=== PATIENT | female | born 1960 | race African-American/Black ===

== ENCOUNTER 2021-03-20 13:58 | Emergency (ER) | payer OTHER ==
--- NOTE | 2021-03-20 15:17 | ER ---
Nurse's Notes [facility] Name: Shana Jim Age: 60 yrs Sex: Female : 1960 Arrival Date: 03/20/2021 Time: 14:03 Bed 19 Private MD: Diagnosis: Insect bite (nonvenomous) of right forearm;Cutaneous abscess of limb Presentation: 03/20 14:05 Chief complaint: Patient states: "I had an insect bite a few weeks ago and now there is aa5 another bump on my right arm and it's really hurting me". Coronavirus screen: At this time, the client does not indicate any symptoms associated with coronavirus-19. Ebola Screen: No symptoms or risks identified at this time. Initial Sepsis Screen: Does the patient meet any 2 criteria? No. Patient's initial sepsis screen is negative. Does the patient have a suspected source of infection? No. Patient's initial sepsis screen is negative. Risk Assessment: Do you want to hurt yourself or someone else? Patient reports no desire to harm self or others. Onset of symptoms was 2020. 14:05 Method Of Arrival: Ambulatory aa5 14:05 Acuity: BAILEY 4 aa5 Historical: - Allergies: 14:07 No Known Allergies; aa5 - PMHx: 14:07 Diabetes mellitus; Hypertensive disorder; aa5 - PSHx: 14:07 tubal ligation; back sx; aa5 - Immunization history:: Client reports receiving the Robert \\T\\ Robert single-dose vaccine. - Social history:: Smoking status: Patient reports the use of cigarette tobacco products, denies chronic smoking, but will smoke occasionally. Screenin:16 Abuse screen: Denies threats or abuse. Nutritional screening: No deficits noted. sl2 Tuberculosis screening: No symptoms or risk factors identified. Fall Risk None identified. Assessment: 14:16 General: Appears in no apparent distress. well groomed, well developed, Behavior is sl2 calm, cooperative, appropriate for age. 14:16 Pain: Complains of pain in right arm Pain does not radiate. Pain currently is 4 out of sl2 10 on a pain scale. Quality of pain is described as aching, Pain began Is continuous. Neuro: No deficits noted. Cardiovascular: No deficits noted. Respiratory: No deficits noted. GI: No deficits noted. : No deficits noted. EENT: No deficits noted. Derm: No deficits noted. Musculoskeletal: No deficits noted. Vital Signs: 14:07 BP 115 / 63; Pulse 73; Resp 16 S; Temp 97.5(TE); Pulse Ox 100% on R/A; Weight 69.4 kg aa5 (R); Height 5 ft. 3 in. (160.02 cm) (R); 14:40 BP 118 / 74; Pulse 75; Resp 18; Temp 97.7; Pulse Ox 99% on R/A; sl2 14:07 Body Mass Index 27.10 (69.40 kg, 160.02 cm) aa5 ED Course: 14:03 Patient arrived in ED. am2 14:05 Arm band placed on. aa5 14:06 Triage completed. aa5 14:12 Lianet Russell MD is Attending Physician. sp3 14:16 Patient has correct armband on for positive identification. Bed in low position. sl2 14:16 Patient did not have IV access during this emergency room visit. sl2 15:30 Angela Emerson, RN is Primary Nurse. sl2 15:33 No provider procedures requiring assistance completed. sl2 Administered Medications: No medications were administered Outcome: 15:16 Discharge ordered by . sp3 15:33 Discharged to home ambulatory. sl2 15:33 Condition: stable 15:33 Discharge instructions given to patient, Instructed on discharge instructions, follow up and referral plans. no drinking with medication, medication usage, Demonstrated understanding of instructions, follow-up care, medications, Prescriptions given X 2. 15:36 Patient left the ED. sl2 Signatures: Ava Wyman, RN RN [facility] Jesi Alexander 2 Lianet Russell MD MD sp3 Angela Emerson, RN RN sl2
--- NOTE | 2021-03-20 15:17 | EDPHYS ---
Physician Documentation [facility] Name: Shana Jim Age: 60 yrs Sex: Female : 1960 Arrival Date: 03/20/2021 Time: 14:03 Bed 19 Private MD: ED Physician Lianet Russell HPI: 03/20 14:41 This 60 yrs old Black Female presents to ER via Ambulatory with complaints of Arm Pain, sp3 Hand Pain. 14:41 60-year-old female with a history of hypertension and diabetes presents with right sp3 anterior forearm insect bite. Patient states that her primary care doctor has been treating a similar bite just medial to when she has by approximately 2 cm. Patient states that she has been on 2 rounds of antibiotics which is improved but the lateral bite has worsened along with now pain radiating proximally into the elbow and shoulder. Patient denies fever, arm swelling, shortness of breath, chest pain, back pain, any other ROS at this time. Patient states that the shoulder pain can sometimes slightly migrate inward but has not been predominantly in the chest. Patient's blood pressure and blood sugar has been fairly controlled with oral medications. Patient denies any other symptoms, prior coagulation pathology, smoking status, family history of pulmonary embolism or DVT, or any other hypercoagulable syndrome.. Historical: - Allergies: 14:07 No Known Allergies; aa5 - PMHx: 14:07 Diabetes mellitus; Hypertensive disorder; aa5 - PSHx: 14:07 tubal ligation; back sx; aa5 - Immunization history:: Client reports receiving the Orbert \T\ Robert single-dose vaccine. - Social history:: Smoking status: Patient reports the use of cigarette tobacco products, denies chronic smoking, but will smoke occasionally. ROS: 14:45 Constitutional: Negative for fever, chills, and weight loss, Eyes: Negative for injury, sp3 pain, redness, and discharge, Neck: Negative for injury, pain, and swelling, Cardiovascular: Negative for chest pain, palpitations, and edema, Respiratory: Negative for shortness of breath, cough, wheezing, and pleuritic chest pain, Abdomen/GI: Negative for abdominal pain, nausea, vomiting, diarrhea, and constipation, Back: Negative for injury and pain, Skin: Negative for injury, rash, and discoloration, Neuro: Negative for headache, weakness, numbness, tingling, and seizure, Allergy/Immunology: Negative for hives, rash, and allergies, Endocrine: Negative for neck swelling, polydipsia, polyuria, polyphagia, and marked weight changes. 14:45 All other systems are negative. Exam: 14:45 Constitutional: This is a well developed, well nourished patient who is awake, alert, sp3 and in no acute distress. Head/Face: Normocephalic, atraumatic. Eyes: Pupils equal round and reactive to light, extra-ocular motions intact. Lids and lashes normal. Conjunctiva and sclera are non-icteric and not injected. Cornea within normal limits. Periorbital areas with no swelling, redness, or edema. Neck: Trachea midline, no thyromegaly or masses palpated, and no cervical lymphadenopathy. Supple, full range of motion without nuchal rigidity, or vertebral point tenderness. No Meningismus. Chest/axilla: Normal chest wall appearance and motion. Nontender with no deformity. No lesions are appreciated. Cardiovascular: Regular rate and rhythm with a normal S1 and S2. No gallops, murmurs, or rubs. Normal PMI, no JVD. No pulse deficits. Respiratory: Lungs have equal breath sounds bilaterally, clear to auscultation and percussion. No rales, rhonchi or wheezes noted. No increased work of breathing, no retractions or nasal flaring. Abdomen/GI: Soft, non-tender, with normal bowel sounds. No distension or tympany. No guarding or rebound. No evidence of tenderness throughout. Neuro: Awake and alert, GCS 15, oriented to person, place, time, and situation. Cranial nerves II-XII grossly intact. Motor strength 5/5 in all extremities. Sensory grossly intact. Cerebellar exam normal. Normal gait. Psych: Awake, alert, with orientation to person, place and time. Behavior, mood, and affect are within normal limits. 14:45 Skin: Patient has healing 1 cm wound consistent with insect bite on the medial aspect of the wrist. Just lateral to that she has another 1 cm still active mildly fluctuant insect bite consistent with possible early abscess with radiating pain proximally. No red streaking is noted. No surface erythema is noted. She has no axillary lymphadenopathy and no signs of peripheral edema or venous congestion.. 15:13 ECG was reviewed by the Attending Physician. EKG demonstrates normal sinus rhythm at 60 sp3 bpm with incomplete right bundle branch block leftward axis, nonspecific ST/T changes diffusely without evidence of any acute ischemia. No old EKG available for comparison. Vital Signs: 14:07 BP 115 / 63; Pulse 73; Resp 16 S; Temp 97.5(TE); Pulse Ox 100% on R/A; Weight 69.4 kg aa5 (R); Height 5 ft. 3 in. (160.02 cm) (R); 14:40 BP 118 / 74; Pulse 75; Resp 18; Temp 97.7; Pulse Ox 99% on R/A; sl2 14:07 Body Mass Index 27.10 (69.40 kg, 160.02 cm) aa5 MDM: 14:38 Patient medically screened. sp3 14:46 Data reviewed: vital signs, nurses notes. ED course: Will obtain quick EKG to assess sp3 for any cardiac abnormality, however we will be administering Bactrim and clindamycin p.o. for a longer course possible MRSA. Patient will be instructed to use warm compresses and follow-up with her PCP regarding further follow-up. At this time I do not clinically believe patient has ACS, PE, thoracic aneurysm, sepsis, shock, septic joint, cellulitis, flexor tenosynovitis, any other critical emergency at this time. There is no pain on passive flexion and patient has full range of motion on all joints.. 15:14 ED course: EKG reviewed and demonstrates no acute ischemia. Clinically patient does not sp3 have acute coronary syndrome given the way she is presented. Will discharge patient home at this time on p.o. Bactrim and p.o. clindamycin with close PCP follow-up.. 03/20 14:38 Order name: EKG - Nurse/Tech; Complete Time: 15:30 sp3 Administered Medications: No medications were administered Disposition Summary: 03/20/21 15:16 Discharge Ordered Location: Home sp3 Condition: Stable sp3 Diagnosis - Insect bite (nonvenomous) of right forearm sp3 - Cutaneous abscess of limb sp3 Followup: sp3 - With: Private Physician - When: - Reason: Continuance of care Discharge Instructions: - Discharge Summary Sheet sp3 - Insect Bite, Adult sp3 Forms: - Medication Reconciliation Form sp3 - Thank You Letter sp3 - Antibiotic Education sp3 - Prescription Opioid Use sp3 Prescriptions: - Clindamycin HCl 300 mg Oral Capsule - take 1 capsule by ORAL route every 6 hours for 10 days; 40 capsule; Refills: 0, sp3 Product Selection Permitted - Bactrim DS 800-160 mg Oral Tablet - take 1 tablet by ORAL route every 12 hours for 10 days; 20 tablet; Refills: 0, sp3 Product Selection Permitted Signatures: Ava Wyman RN RN aa5 Lianet Russell MD MD sp3
[2021-03-20 15:57] VITALS: BP 118/74; TEMP 97.7; O2SAT 99
--- NOTE | 2021-03-21 12:15 | EKG ---
Test Date: 2021-03-20 Test Time: 15:02:16 Client Advisor: Queta MEASUREMENT RESULTS: Intervals: Rate: 58 TX: 174 QRSD: 106 QT: 424 QTc: 416 [place]: P: 37 TX: 174 QRS: -44 T: -31 INTERPRETIVE STATEMENTS: Sinus bradycardia Left axis deviation Incomplete right bundle branch block Voltage criteria for left ventricular hypertrophy Nonspecific T wave abnormality Abnormal ECG Compared to ECG 10/30/2011 16:13:19 Incomplete right bundle-branch block now present T-wave abnormality now present Sinus rhythm no longer present Electronically Signed On 03-21-21 12:12:58 CDT by Calvin Holly
== END 2021-03-20 15:36 | disposition home or self-care (01) ==
LOC: ER 13:58
DX: S50.861A Insect bite (nonvenomous) of right forearm, initial encounter (principal); L02.413 Cutaneous abscess of right upper limb; F17.210 Nicotine dependence, cigarettes, uncomplicated; I10 Essential (primary) hypertension; E11.9 Type 2 diabetes mellitus without complications
CPT/HCPCS: 93005; 99282

== ENCOUNTER 2021-12-16 18:19 | Observation (INO) | payer OTHER ==
--- OUTSIDE RECORDS SUMMARY | 2021-12-16 18:32 | XMS REPORT | Continuity of Care Document ---
:1960 Author Organization [facility] Address [address] [place] [address] Dr. Feliciano [address] [place] [id number] Care Team Providers Name Role Phone SAMANTHA Attending Clinician Unavailable Karen Attending Clinician [phone] BRIE Attending Clinician Unavailable KAREN_Beck Admitting Clinician Unavailable BRIE Admitting Clinician Unavailable Payers Payer Name Policy Type Policy Number Effective Date Expiration Date [facility] [id number] 2021 [facility] 00:00:00 (MEDICAID HMO) INDIGENT PROGRAM [id number] Problems This patient has no known problems. Allergies, Adverse Reactions, Alerts This patient has no known allergies or adverse reactions. Medications This patient has no known medications. Procedures This patient has no known procedures. Encounters Start End Encounter Admission Attending Care Care Encounter Source Date/Time Date/Time Type Type Clinicians Facility Department ID 2021-12-07 2021-12-07 Outpatient [facility] [id number] [place] 12:08:00 12:08:00 [facility] 2021-12-07 2021-12-07 Outpatient Karen [facility] [id number] 00:00:00 00:00:00 Mindy [id number] 2021-11-03 2021-11-03 Outpatient [facility] [id number] [place] 04:09:00 04:09:00 [facility] 2021-11-03 2021-11-03 Outpatient Karen, [facility] [id number] 00:00:00 00:00:00 Mindy [id number] 2021-09-14 2021-09-14 [facility] [id number] [place] 11:03:00 11:03:00 HN [id number] da [facility] 2021-03-01 2021-03-01 Outpatient [facility] [id number] [place] 04:09:00 04:09:00 [facility] 2021-03-01 2021-03-01 Outpatient [facility] [id number] [place] 04:09:00 04:09:00 [facility] 2021-03-01 2021-03-01 Outpatient [facility] [id number] [place] 04:09:00 04:09:00 131 [facility] 2021-02-28 2021-02-28 Outpatient [facility] [id number] [place] 12:01:00 12:01:00 [facility] 2021-02-28 2021-02-28 Outpatient Karen, [facility] [id number] 00:00:00 00:00:00 Mindy [id number] 2021-02-21 2021-02-21 Outpatient [facility] [id number] [place] 12:29:00 12:29:00 [facility] 2021-02-21 2021-02-21 Outpatient [facility] [id number] [place] 12:29:00 12:29:00 001 [facility] 2021-02-21 2021-02-21 Outpatient Karen, [facility] [id number] 00:00:00 00:00:00 Mindy [id number] 2020-12-28 2020-12-28 Outpatient [facility] [id number] [place] 11:27:00 11:27:00 [facility] 2020-12-28 2020-12-28 Outpatient Karen, [facility] [id number] 00:00:00 00:00:00 Mindy [id number] 2020-11-30 2020-11-30 Outpatient [facility] [id number] [place] 09:32:00 09:32:00 707 [facility] 2020-11-10 2020-11-10 Outpatient [facility] [id number] [place] 12:24:00 12:24:00 617 [facility] 2020-10-07 2020-10-07 Outpatient [facility] [id number] [place] 10:56:00 10:56:00 514 [facility] 2020-10-07 2020-10-07 Outpatient Karen, [facility] [id number] 00:00:00 00:00:00 [id number] 2020-10-07 2020-10-07 Outpatient Karen, [facility] [id number] 00:00:00 00:00:00 Mindy [id number] 2020-08-16 2020-08-16 Outpatient [facility] [id number] [place] 11:52:00 11:52:00 [facility] 2020-08-16 2020-08-16 Outpatient Karen, [facility] [id number] 00:00:00 00:00:00 Mindy [id number] 2020-08-16 2020-08-16 Outpatient Karen, [facility] [id number] 00:00:00 00:00:00 Mindy [id number] 2020-05-18 2020-05-18 Outpatient [facility] [id number] [place] 12:30:00 12:30:00 223 [facility] 2020-05-17 2020-05-17 Outpatient [facility] [id number] [place] 11:43:00 11:43:00 222 [facility] 2020-05-12 2020-05-12 Outpatient [facility] [id number] [place] 02:47:00 02:47:00 [facility] 2019-01-26 2019-01-26 Emergency E [id number] [facility] 11:44:00 11:44:00 Results This patient has no known results.
[2021-12-16] MEDS ORDERED: ONDANSETRON 4 MG/2 ML VIAL ONE (19:01)
[2021-12-16] MEDS ORDERED: ASPIRIN 81 MG CHEWABLE TABLET ONE (19:01)
[2021-12-16 19:05] LABS: Absolute Lymphocytes (CBC) 2.7 K/uL (0.7-4.9); Hematocrit 37.1 % (36.0-45.0); Lymphocytes % 41.5 % (15.3-44.8); MCV 86.6 fL (80-100); RBC Red Blood Cell Count 4.28 M/uL (3.86-4.86)
[2021-12-16 19:08] LABS: Protime INR 1.14
[2021-12-16 19:22] LABS: Bilirubin Direct 0.2 mg/dL (0-0.2); Bilirubin Total 0.5 mg/dL (0.2-1.0); Magnesium 2.1 mg/dL (1.8-2.4); Protein, Total 7.8 g/dL (6.4-8.2); Troponin High Sensitivity 8.3 pg/mL (<58.9)
--- NOTE | 2021-12-16 20:03 | RAD REPORT ---
EXAM DESCRIPTION: RAD - Chest Single View - 12/16/2021 7:43 pm CLINICAL HISTORY: CHEST PAIN COMPARISON: CHEST PA AND LAT 2 VIEW dated 04/08/2008; CHEST PA AND LAT 2 VIEW dated 02/13/2006 FINDINGS: Lines: None. Lungs: No evidence of edema or pneumonia. Calcified pulmonary nodules. Pleural: No significant pleural effusions or pneumothorax. Cardiac: The heart size is within normal limits. Bones: No acute fractures. Other: IMPRESSION: No acute cardiopulmonary disease.
--- NOTE | 2021-12-16 20:11 | EDPHYS ---
Physician Documentation [facility] Name: Shana Jim Age: 61 yrs Sex: Female : 1960 Arrival Date: 12/16/2021 Time: 18:20 Bed 24 Private MD: ED Physician Magali Burrell HPI: 12/16 18:45 This 61 yrs old Black Female presents to ER via Ambulatory with complaints of Chest cp Pain. 18:45 The patient or guardian reports chest pain that is located primarily in the anterior cp chest wall, left. 18:45 Onset: last night. Associated signs and symptoms: Pertinent positives: dizziness, lower cp extremity pain, nausea, shortness of breath, vomiting, left arm and left hand tingling, Pertinent negatives: abdominal pain, cough, syncope. The chest pain is described as a pressure. Duration: The patient or guardian reports multiple episodes, that wax and wane. Modifying factors: The symptoms are alleviated by rest, the symptoms are aggravated by activity. Severity of pain: in the emergency department the pain has improved markedly. Historical: - Allergies: 18:26 Acetaminophen; vg1 - Home Meds: 18:26 Metformin Oral [Active]; insulin [Active]; BP meds [Active]; vg1 - PMHx: 18:26 diabetes mellitus; Hypertensive disorder; vg1 - PSHx: 18:26 back sx; tubal ligation; vg1 - Immunization history:: Client reports receiving the 2nd dose of the Covid vaccine. - Social history:: Smoking status: Patient reports the use of cigarette tobacco products, denies chronic smoking, but will smoke occasionally. ROS: 18:50 Eyes: Negative for injury, pain, redness, and discharge. cp 18:50 Constitutional: Negative for body aches, chills, fever, poor PO intake. 18:50 ENT: Negative for drainage from ear(s), ear pain, sore throat, difficulty swallowing, difficulty handling secretions. 18:50 Cardiovascular: Positive for chest pain, Negative for edema, palpitations. 18:50 Respiratory: Positive for shortness of breath, Negative for cough, wheezing. 18:50 Abdomen/GI: Positive for nausea and vomiting, Negative for abdominal pain. 18:50 Back: Negative for pain at rest, pain with movement. 18:50 Neuro: Positive for dizziness, numbness, Negative for altered mental status, weakness. 18:50 All other systems are negative. Exam: 18:32 ECG was reviewed by the Attending Physician. cp 18:55 Constitutional: The patient appears in no acute distress, alert, awake, cp non-diaphoretic, non-toxic, well developed, well nourished, uncomfortable. 18:55 Head/Face: Normocephalic, atraumatic. cp 18:55 Eyes: Periorbital structures: appear normal, Conjunctiva: normal, no exudate, no injection, Sclera: no appreciated abnormality, Lids and lashes: appear normal, bilaterally. 18:55 ENT: External ear(s): are unremarkable, Nose: is normal, Mouth: Lips: moist, Oral mucosa: pink and intact, moist. 18:55 Neck: ROM/movement: is normal, is supple, without pain, no range of motions limitations. 18:55 Chest/axilla: Inspection: normal. 18:55 Cardiovascular: Rate: normal, Rhythm: regular, Edema: is not appreciated, JVD: is not appreciated. 18:55 Respiratory: the patient does not display signs of respiratory distress, Respirations: normal, no use of accessory muscles, no retractions, labored breathing, is not present, Breath sounds: are clear throughout, no decreased breath sounds, no stridor, no wheezing. 18:55 Abdomen/GI: Inspection: abdomen appears normal, Palpation: abdomen is soft and non-tender, in all quadrants. 18:55 Back: CVA tenderness, is absent. 18:55 Neuro: Orientation: to person, place \T\ time. Mentation: is normal, Motor: moves all fours, strength is normal, Sensation: tingling, that is mild, of the left hand and left arm. Vital Signs: 18:23 BP 123 / 82; Pulse 80; Resp 16; Temp 97.7; Pulse Ox 99% on R/A; Weight 65.77 kg; Height vg1 5 ft. 3 in. (160.02 cm); Pain 6/10; 18:45 BP 114 / 64; Pulse 67; Resp 17 S; Pulse Ox 100% on R/A; jg9 19:30 BP 118 / 54; Pulse 61; Resp 18; Pulse Ox 100% on R/A; lp1 20:30 BP 105 / 63; Pulse 61; Resp 19; Pulse Ox 99% on R/A; lp1 18:23 Body Mass Index 25.69 (65.77 kg, 160.02 cm) vg1 MDM: 18:38 Patient medically screened. cp 21:40 Data reviewed: vital signs, nurses notes, lab test result(s), EKG, radiologic studies, cp CT scan, plain films. 21:40 The patient was given aspirin in the Emergency Department. Test interpretation: by ED cp physician or midlevel provider: ECG, plain radiologic studies. 12/16 18:39 Order name: Basic Metabolic Panel; Complete Time: 19:44 cp 12/16 19:44 Interpretation: Normal except: GLUC 111; GFR 69. cp 12/16 18:39 Order name: CBC with Diff; Complete Time: 19:44 cp 12/16 19:45 Interpretation: Normal except: MPV 7.0. cp 12/16 18:39 Order name: LFT's; Complete Time: 19:44 cp 12/16 19:45 Interpretation: Normal except: AST 14; GLOB 3.8. cp 12/16 18:39 Order name: Magnesium; Complete Time: 19:44 cp 12/16 18:39 Order name: NT PRO-BNP; Complete Time: 19:44 cp 12/16 18:39 Order name: PT-INR; Complete Time: 19:44 cp 12/16 18:39 Order name: Troponin HS; Complete Time: 19:44 cp 12/16 19:45 Interpretation: Within normal limits: Troponin HS 8.3. cp 12/16 21:17 Order name: SARS RAPID; Complete Time: 07:10 lp1 12/16 21:44 Order name: Glucose, Ancillary Testing; Complete Time: 07:10 EDMS 12/16 23:37 Order name: Troponin High Sensitivity; Complete Time: 07:10 EDMS 12/17 00:12 Order name: Glucose, Ancillary Testing; Complete Time: 07:10 EDMS 12/17 03:18 Order name: CBC with Automated Diff; Complete Time: 07:10 EDMS 12/17 03:41 Order name: Comprehensive Metabolic Panel; Complete Time: 07:10 EDMS 12/17 03:41 Order name: Troponin High Sensitivity; Complete Time: 07:10 EDMS 12/16 18:39 Order name: XRAY Chest (1 view); Complete Time: 20:15 cp 12/16 18:39 Order name: EKG; Complete Time: 18:40 cp 12/16 18:39 Order name: Cardiac monitoring; Complete Time: 18:54 cp 12/16 19:46 Order name: CT Head Brain wo Cont; Complete Time: 21:18 cp 12/16 19:46 Order name: US Extremity Venous W Compression Elpidio; Complete Time: 21:18 cp 12/16 19:47 Order name: CT Chest For PE Angio; Complete Time: 21:35 cp 12/17 03:41 Order name: Lipid Profile; Complete Time: 07:10 EDMS 12/17 03:41 Order name: T4 Free; Complete Time: 07:10 EDMS 12/17 03:41 Order name: Thyroid Stimulating Hormone; Complete Time: 07:10 EDMS 12/17 07:13 Order name: Glucose, Ancillary Testing EDMS 12/17 10:14 Order name: Hemoglobin A1c EDDE 12/17 11:57 Order name: Glucose, Ancillary Testing EDMS 12/16 18:39 Order name: EKG - Nurse/Tech; Complete Time: 18:54 cp 12/16 18:39 Order name: IV Saline Lock; Complete Time: 18:54 cp 12/16 18:39 Order name: Labs collected and sent; Complete Time: 18:54 cp 12/16 18:39 Order name: O2 Sat Monitoring; Complete Time: 18:54 cp EC:32 Rate is 76 beats/min. Rhythm is regular. MD interval is normal. QRS interval is normal. cp QT interval is normal. T waves are Inverted in lead aVR. Interpreted by me. Reviewed by me. Administered Medications: 18:58 Drug: Zofran (Ondansetron) 4 mg Route: IVP; Site: right antecubital; jg9 19:01 Drug: Aspirin Chewable Tablet 324 mg Route: PO; jg9 12/17 03:04 Not Given (Patient tolerating eating welll): Reglan (metoCLOPramide) 10 mg IVP once; lp1 over 1 to 2 minutes 03:05 Not Given (Patient denies any pain or discomfortt): morphine 2 mg IVP once over 4 mins lp1 Point of Care Testing: Blood Glucose: 12/16 21:39 Blood Glucose: 69 mg/dL; lp1 Ranges: Critical Glucose Levels:Adult <50 mg/dl or >400 mg/dl <40 mg/dl or >180 mg/dl Disposition: 12/17 07:15 STAFF ATTESTATION STATEMENT I was immediately available on-site in the Emergency sd2 Department for consultation in the care of the patient. Magali Burrell MD. Disposition Summary: 12/16/21 20:10 Hospitalization Ordered Hospitalization Status: Observation cp Provider: Gene Jose cp Condition: Stable cp Problem: new cp Symptoms: have improved cp Bed/Room Type: Standard cp Location: Telemetry/MedSurg (observation)(12/17/21 11:51) Room Assignment: 230(12/17/21 11:51) dw Diagnosis - Chest pain, unspecified cp Forms: - Medication Reconciliation Form cp - SBAR form cp Signatures: Dispatcher [employer] EDMS Juanita Silva RN RN dw Bill Roy, METAL BENDING MACHINE OPERATOR-C METAL BENDING MACHINE OPERATOR-Cla1 Joshua Bowers PA PA cp Garcia, Cindy RN RN cg Steve, Josseline RN RN vg1 Zeb Reeves DO DO ms3 Ivette Hernández RN RN jg9 Magali Burrell MD MD sd2 Angela Puente RN lp1 Corrections: (The following items were deleted from the chart) 12/16 22:29 20:10 Telemetry/MedSurg (observation) cp cg 22:29 20:10 cp cg 12/17 11:51 12/16 22:29 [facility] ER HOLD cg 12/17 11:51 12/16 22:29 ERHOLD- cg 12/18 09:30 12/17 18:50 Constitutional: Negative for body aches, chills, fever, poor PO intake, cp cp 12/18 09:30 12/17 18:50 Cardiovascular: Positive for chest pain, Negative for edema, palpitations, cp cp 12/18 09:30 12/17 18:50 Respiratory: Positive for shortness of breath, Negative for cough, cp wheezing, cp 12/18 08:12/17 18:50 Eyes: Negative for injury, pain, redness, and discharge, cp cp 12/18 08:30 12/17 18:50 ENT: Negative for drainage from ear(s), ear pain, sore throat, difficulty cp swallowing, difficulty handling secretions, cp 12/18 09:12/17 18:50 Abdomen/GI: Positive for nausea and vomiting, Negative for abdominal pain, cp cp 12/18 09:12/17 18:50 Back: Negative for pain at rest, pain with movement, cp cp 12/18 09:12/17 18:50 Neuro: Positive for dizziness, numbness, Negative for altered mental cp status, weakness, cp 12/18 09:12/17 18:50 All other systems are negative, cp cp
--- NOTE | 2021-12-16 20:11 | ER ---
Nurse's Notes [facility] Name: Shana Jim Age: 61 yrs Sex: Female : 1960 Arrival Date: 12/16/2021 Time: 18:20 Bed 24 Private MD: Diagnosis: Chest pain, unspecified Presentation: 12/16 18:23 Chief complaint: Patient states: CP started last night that does not radiate, stated vg1 tingling in Left hand and headache and dizziness. Also c/o NV and SOB. Coronavirus screen: Vaccine status: Patient reports receiving the 2nd dose of the covid vaccine. Client denies travel out of the [place] in the last 14 days. Ebola Screen: Patient denies exposure to infectious person. Patient denies travel to an Ebola-affected area in the 21 days before illness onset. Initial Sepsis Screen: Does the patient meet any 2 criteria? No. Patient's initial sepsis screen is negative. Does the patient have a suspected source of infection? No. Patient's initial sepsis screen is negative. Risk Assessment: Do you want to hurt yourself or someone else? Patient reports no desire to harm self or others. Onset of symptoms was December 15, 2021. 18:23 Method Of Arrival: Ambulatory vg1 18:23 Acuity: BAILEY 2 vg1 Triage Assessment: 18:26 General: Appears uncomfortable, Behavior is calm, cooperative. Pain: Complains of pain vg1 in chest Pain does not radiate. Pain currently is 6 out of 10 on a pain scale. Quality of pain is described as heavy, Pain began 1 day ago. Cardiovascular: Patient's skin is warm and dry. Respiratory: Reports shortness of breath on exertion Airway is patent Respiratory effort is even, unlabored. GI: Reports nausea, vomiting. 18:26 Neuro: Level of Consciousness is awake, alert, obeys commands, Oriented to person, vg1 place, time, situation, Reports dizziness, headache. Historical: - Allergies: 18:26 Acetaminophen; vg1 - Home Meds: 18:26 Metformin Oral [Active]; insulin [Active]; BP meds [Active]; vg1 - PMHx: 18:26 diabetes mellitus; Hypertensive disorder; vg1 - PSHx: 18:26 back sx; tubal ligation; vg1 - Immunization history:: Client reports receiving the 2nd dose of the Covid vaccine. - Social history:: Smoking status: Patient reports the use of cigarette tobacco products, denies chronic smoking, but will smoke occasionally. Screenin:54 Abuse screen: Denies threats or abuse. Denies injuries from another. Nutritional jg9 screening: No deficits noted. Tuberculosis screening: No symptoms or risk factors identified. Fall Risk None identified. Assessment: 18:54 Reassessment: No changes from previously documented assessment. jg9 20:00 Reassessment: Patient appears in no apparent distress at this time. Patient is alert, lp1 oriented x 3, equal unlabored respirations, skin warm/dry/pink. Patient reports chest pain is intermittent, comes and goes; No discomfort at this time; socks given per patient request Patient denies pain at this time. 20:54 Reassessment: Patient is alert, oriented x 3, equal unlabored respirations, skin lp1 warm/dry/pink. Patient denies pain at this time. 21:39 Reassessment: Provider notified of patient blood glucose of 69, provider okay for lp1 patient to eat. 21:39 Reassessment: Discussed with patient not to take her home medication of Lantus 10 units lp1 SQ, patient demonstrates understanding. Vital Signs: 18:23 BP 123 / 82; Pulse 80; Resp 16; Temp 97.7; Pulse Ox 99% on R/A; Weight 65.77 kg; Height vg1 5 ft. 3 in. (160.02 cm); Pain 6/10; 18:45 BP 114 / 64; Pulse 67; Resp 17 S; Pulse Ox 100% on R/A; jg9 19:30 BP 118 / 54; Pulse 61; Resp 18; Pulse Ox 100% on R/A; lp1 20:30 BP 105 / 63; Pulse 61; Resp 19; Pulse Ox 99% on R/A; lp1 18:23 Body Mass Index 25.69 (65.77 kg, 160.02 cm) vg1 ED Course: 18:20 Patient arrived in ED. mr 18:26 Triage completed. vg1 18:26 Arm band placed on. vg1 18:33 Joshua Bowers PA is PHCP. cp 18:33 Magali Burrell is Attending Physician. cp 18:43 Ivette Hernández, SAAD is Primary Nurse. jg9 18:50 Inserted saline lock: 20 gauge in right antecubital area, using aseptic technique. jg9 Blood collected. 18:54 EKG done, by ED staff, reviewed by Joshua KEENE. em1 18:55 Patient has correct armband on for positive identification. Bed in low position. Call jg9 light in reach. Side rails up X 1. Client placed on continuous cardiac and pulse oximetry monitoring. NIBP monitoring applied. 18:55 Patient maintains SpO2 saturation greater than 95% on room air. jg9 19:45 XRAY Chest (1 view) In Process Unspecified. EDMS 20:10 Gene Jose MD is Hospitalizing Provider. cp 20:19 No provider procedures requiring assistance completed. Patient admitted, IV remains in lp1 place. 21:00 CT Head Brain wo Cont In Process Unspecified. EDMS 21:05 CT Chest For PE Angio In Process Unspecified. EDMS 21:10 US Extremity Venous W Compression Elpidio In Process Unspecified. EDMS 12/17 06:32 Primary Nurse role handed off by Ivette Hernández RN eb Administered Medications: 12/16 18:58 Drug: Zofran (Ondansetron) 4 mg Route: IVP; Site: right antecubital; jg9 19:01 Drug: Aspirin Chewable Tablet 324 mg Route: PO; j9 12/17 03:04 Not Given (Patient tolerating eating welll): Reglan (metoCLOPramide) 10 mg IVP once; lp1 over 1 to 2 minutes 03:05 Not Given (Patient denies any pain or discomfortt): morphine 2 mg IVP once over 4 mins lp1 Medication: 12/16 19:34 VIS not applicable for this client. lp1 Point of Care Testing: Blood Glucose: 21:39 Blood Glucose: 69 mg/dL; lp1 Ranges: Outcome: 20:10 Decision to Hospitalize by Provider. cp 21:41 Condition: stable lp1 21:41 Instructed on the need for admit. 22:15 Admitted to ER Hold. Please see [facility] for further documentation. lp1 12/17 12:11 Patient left the ED. jd3 Signatures: Dispatcher [employer] EDAZ Chelly Storm Thong Lion em1 Angela Puente RN RN lp1 Page, Joshua, PA Vignesh Young cp, RN RN jd3 Diamond Taylor Victoria, RN RN vg1 Ivette Hernández RN RN jg9
[2021-12-16] MEDS ORDERED: MORPHINE 2 MG/ML SYR ONE (20:27)
[2021-12-16] MEDS ORDERED: METOCLOPRAMIDE 10 MG/2mL INJ ONE (20:27)
--- NOTE | 2021-12-16 21:14 | RAD REPORT ---
EXAM DESCRIPTION: CT - Head Brain Wo Cont - 12/16/2021 8:58 pm CLINICAL HISTORY: Dizziness, non-specific COMPARISON: No comparisonsNo comparisons TECHNIQUE: All CT scans are performed using dose optimization technique as appropriate and may inclu de automated exposure control or mA/KV adjustment according to patient size. FINDINGS: No intracranial hemorrhage, hydrocephalus or extra-axial fluid collection.No areas of brai n edema or evidence of midline shift. The paranasal sinuses and mastoids are clear. The calvarium is intact. IMPRESSION: No acute intracranial abnormality.
--- NOTE | 2021-12-16 21:14 | RAD REPORT ---
EXAM DESCRIPTION: US - Extrem Venous W Compress Elpidio - 12/16/2021 9:08 pm CLINICAL HISTORY: PAIN COMPARISON: No comparisons TECHNIQUE: Real-time sonographic evaluation of the lower extremity deep venous systems was performed using color Doppler, grayscale, and compression. FINDINGS: Bilateral lower extremities. Normal compressibility, flow augmentation, phasic flow and spontaneous flow is identified in both the left and right lower extremity deep venous systems. No intraluminal filling defects seen. IMPRESSION: No DVT in either lower extremity.
--- NOTE | 2021-12-16 21:22 | P.HP ---
Certification for Inpatient Patient admitted to: Observation With expected LOS: <2 Midnights Patient will require the following post-hospital care: None Practitioner: I am a practitioner with admitting privileges, knowledge of patient current condition, hospital course, and medical plan of care. Services: Services provided to patient in accordance with Admission requirements found in Title 42 Section 412.3 of the Code of Federal Regulations Patient History Date of Service: 12/16/21 Reason for admission: Chest pain rule out ACS History of Present Illness: 61-year-old female with history of diabetes mellitus type 2insulin-dependent, hypertension, hyperlipidemia presents the emergency department for chest pain. She reports that she is been having intermittent chest pain over the course of the last couple of months worse with exertion described as sharp radiates to the left arm associated with nausea, shortness of breath and occasionally diapho resis. She had episode today while she is speaking with her family on the phone that prompted her to come to the emergency department. She is not currently having any chest pain or initial troponin is negative EKG was without STEMI criteria her chest x-ray is unremarkable. She is currently pending CT scan to rule out pulmonary embolism. ED prior wishes to admit under observation for ACS rule out and cardiology evaluation. She reports she last had a stress test "many years ago" she has never had a heart catheterization. Allergies No Known Allergies Allergy (Unverified 10/30/11 16:02) - Past Medical/Surgical History Diabetic: Yes -: Diabetes mellitus type 2insulin-dependent -: Hypertension -: Hyperlipidemia -: Back surgery -: Tubal ligation Psychosocial/ Personal History: Patient is unemployed, lives alone. - Family History Mother -: Diabetes Father -: Cancer Brother -: Diabetes Sister -: Diabetes - Social History Smoking Status: Current some day smoker Counseled patient to stop smoking for: less than 10 minutes Alcohol use: Yes CD- Drugs: Yes Caffeine use: Yes Place of Residence: Home Review of Systems 10-point ROS is otherwise unremarkable Respiratory: SOB with Excertion Cardiovascular: Chest Pain Physical Examination - Physical Exam General: Alert, In no apparent distress, Oriented x3 HEENT: Atraumatic, PERRLA, Mucous membr. moist/pink, EOMI, Sclerae nonicteric Neck: Supple, 2+ carotid pulse no bruit, No LAD, Without JVD or thyroid abnormality Respiratory: Clear to auscultation bilaterally, Normal air movement Cardiovascular: Regular rate/rhythm, Normal S1 S2 Gastrointestinal: Normal bowel sounds, No tenderness Musculoskeletal: No tenderness Integumentary: No rashes Neurological: Normal speech, Normal strength at 5/5 x4 extr, Normal tone, Normal affect - Studies Laboratory Data (last 24 hrs) 12/16/21 18:45: PT 12.6 H, INR 1.14 12/16/21 18:45: WBC 6.4, Hgb 12.5, Hct 37.1, Plt Count 270 12/16/21 18:45: Sodium 140, Potassium 4.0, BUN 16, Creatinine 0.93, Glucose 111 H, Magnesium 2.1, Total Bilirubin 0.5, AST 14 L, ALT 24, Alkaline Phosphatase 76 Assessment and Plan - Plan Assessment: Chest pain rule out ACS Diabetes mellitus type 2insulin-dependent Hypertension Hyperlipidemia Plan: Chest pain rule out ACS: Trend troponins, monitor on telemetry, aspirin, statin, low-dose beta-lane with hold parameters. Cardiology consulted. Diabetes mellitus type 2insulin-dependent: Patient takes Lantus 10 units nightly, will continue with 5 units at this time along with mild sliding scale. Hypertension: Continue home medications once verified, low-dose beta-lane for now with hold parameters. Hyperlipidemia: She does not know which statin she takes, atorvastatin ordered. DVT PPX: Lovenox Code status: Full Discharge Plan: Home Plan to discharge in: 24 Hours - Advance Directives Does patient have a Living Will: No Does patient have a Durable POA for Healthcare: No - Code Status/Comfort Care Code Status Assessed: Yes (Full code) Critical Care: No Time Spent Managing Pts Care (In Minutes): 70
--- NOTE | 2021-12-16 21:31 | RAD REPORT ---
EXAM DESCRIPTION: CT - Chest For Pe Angio - 12/16/2021 9:03 pm CLINICAL HISTORY: chest pain COMPARISON: No comparisons TECHNIQUE: Dynamically enhanced axial 3 mm thick images of the chest were obtained during administra tion of <100> mL Isovue 370 IV contrast. Coronal and oblique reconstruction images were generated and reviewed. Exam utilizes a protocol for optimal evaluation of pulmonary arterial tree. Maximum intensity projections 3D imaging was utilized All CT scans are performed using dose optimization technique as appropriate and may include automated exposure control or mA/KV adjustment according to patient size. FINDINGS: Chest Wall: Multinodular thyroid. Lungs: Scarring in the right upper lobe. Relative hypoattenuation of a large portion of the right upp er lobe is likely a congenital or developmental anomaly such as from a atretic bronchus. No acute pro cess in the lungs. Pleura: No significant effusions or pneumothorax. Mediastinum/chip: No pathologic lymphadenopathy. Pulmonary arteries/Aorta: No filling defect identified. No aortic aneurysm. Heart: No significant pericardial effusion. Normal heart size. Upper abdomen: No acute abnormality. Bones: No acute abnormality. IMPRESSION: Negative for pulmonary embolism. See note above regarding the right upper lobe. Large mu ltinodular goiter.
[2021-12-16 21:47] LABS: SARS-CoV-2 Antigen Rapid Res Negative (Negative)
[2021-12-16 22:42] VITALS: BMI 25.7
[2021-12-16] MEDS ORDERED: ONDANSETRON 4 MG/2 ML VIAL IV PRN (22:42)
[2021-12-16] MEDS: MELATONIN 5 MG TABLET PO PRN (23:50)
[2021-12-16] MEDS ORDERED: MELATONIN 5 MG TABLET PO ONE (23:56)
[2021-12-17 03:10] LABS: Absolute Lymphocytes (CBC) 2.8 K/uL (0.7-4.9); Hematocrit 34.8 % (36.0-45.0); Lymphocytes % 51.3 % (15.3-44.8); MCV 85.7 fL (80-100); MPV 7.3 fL (7.6-11.3); RBC Red Blood Cell Count 4.06 M/uL (3.86-4.86)
[2021-12-17 03:40] LABS: Albumin 3.5 g/dL (3.4-5.0); Bilirubin Total 0.5 mg/dL (0.2-1.0); Potassium 3.4 mmol/L (3.5-5.1); Protein, Total 7.1 g/dL (6.4-8.2); Thyroid Stimulating Hormone 0.812 uIU/mL (0.360-3.740); Troponin High Sensitivity 12.7 pg/mL (<58.9)
[2021-12-17] MEDS: METOPROLOL TAR 25 MG TAB PO SCH ×2 (05:48→18:00)
[2021-12-17] MEDS ORDERED: METOPROLOL TAR 25 MG TAB ONE (05:56)
[2021-12-17] MEDS ORDERED: POTASSIUM CL SA 10 MEQ TAB PO ONE ×3 (06:01→07:45)
[2021-12-17] MEDS: INSULIN -REGULAR HUMAN 50 UNIT/0.5 ML ML SQ SCH ×4 (07:30→20:57)
[2021-12-17] MEDS: ASPIRIN EC 81 MG TAB PO SCH (09:00)
[2021-12-17] MEDS: ENOXAPARIN 40 MG/0.4 ML SQ SCH (09:00)
[2021-12-17] MEDS ORDERED: ASPIRIN EC 81 MG TAB PO ONE (09:33)
[2021-12-17] MEDS ORDERED: ENOXAPARIN 40 MG/0.4 ML SQ ONE (09:34)
--- NOTE | 2021-12-17 11:27 | CON ---
Date of Consultation: 12/17/2021 Reason For Consultation: Chest pain. History Of Present Illness: Ms. Jim is a 61-year-old black female with history of diabetes and h ypertension, who came in with chest tightness that happened yesterday, which lasted about 10 minutes. It was nonexertional, nonradiating. Denies any nausea, vomiting, diaphoresis, PND, orthopnea, peda l edema, palpitations, syncope. She had a normal EKG with septal LVH. Chest x-ray was negative. Ve nous Doppler was negative. CT angiogram of the chest was negative. Troponin was negative. BNP is n egative. Allergies: NONE. Review of Systems: Negative. Social History: Negative. Family History: Noncontributory. Medications: At home include Metformin and insulin. Physical Examination: General: Pleasant lady, in no acute distress. Vital Signs: Stable, afebrile. HEENT: Negative. Neck: Supple without any bruit, lymphadenopathy, JVD, or thyromegaly. Chest: Clear to auscultation and percussion. Cardiac: Revealed a regular rhythm and rate. No murmurs, gallops, or rubs. Abdomen: Benign. Extremities: Revealed no clubbing, cyanosis, or edema. Diagnostic Data: All within normal limits. Impression And Plan: Atypical chest pain in a patient with diabetes and hypertension. It is concern ing because of tightness, however, it is nonexertional and nonradiating. Negative workup so far. I think we needs to continue her present regimen including aspirin, insulin, metoprolol, Lipitor, and L ovenox. I think she needs to have an echocardiogram and Lexiscan in the morning before we make a fin al decision. LORNE/BHAVIKL Voice ID: [id number] Report ID: [id number]
[2021-12-17] MEDS: INSULIN GLARGINE 100 UNIT/ML SQ SCH (20:57)
[2021-12-17] MEDS ORDERED: ATORVASTATIN 40 MG TAB PO SCH (21:00)
--- NOTE | 2021-12-17 22:05 | P.PN ---
Date of Service: 12/17/21 Subjective: chest pain persists trop negative x 3 no n/v/d, no abd pain ROS: 10 point ROS as noted above, otherwise negative Physical Exam: Gen: NAD, AOx3 HEENT: normal conjunctiva, sclera anicteric CV: regular rate/rhythm, no edema Pulm: CTAB, no w/r/r Abd: soft, NTND Neuro: normal affect, normal strength Problem List Chest pain rule out ACS Diabetes mellitus type 2insulin-dependent Hypertension Hyperlipidemia trop neg x 3 continue aspirin, statin, beta lane cardio consulted plans for echo, stress test tomorrow insulin sliding scale confirm home medications VTE: lovenox Code: full Dispo: home, 24hrs Time Spent Managing Pts Care (In Minutes): 35
[2021-12-17] MEDS: MELATONIN 5 MG TABLET PO PRN (23:32)
[2021-12-18 04:29] LABS: Absolute Lymphocytes (CBC) 2.8 K/uL (0.7-4.9); Hematocrit 36.7 % (36.0-45.0); Lymphocytes % 50.6 % (15.3-44.8); MCV 86.3 fL (80-100); MPV 7.1 fL (7.6-11.3); RBC Red Blood Cell Count 4.26 M/uL (3.86-4.86)
[2021-12-18 04:51] LABS: Albumin 3.6 g/dL (3.4-5.0); Bilirubin Total 0.5 mg/dL (0.2-1.0); Potassium 4.2 mmol/L (3.5-5.1); Protein, Total 7.2 g/dL (6.4-8.2)
[2021-12-18] MEDS: METOPROLOL TAR 25 MG TAB PO SCH (05:51)
[2021-12-18] MEDS: INSULIN -REGULAR HUMAN 50 UNIT/0.5 ML ML SQ SCH ×2 (07:30→11:30)
[2021-12-18 07:48] LABS: Blood Morphology Comment NOT SEEN (NOT SEEN); Platelet Estimate ADEQ
[2021-12-18] MEDS ORDERED: REGADENOSON 0.4 MG/5 ML SYR IV ONE (08:30)
--- NOTE | 2021-12-18 09:29 | EKG ---
Test Date: 2021-12-16 Test Time: 18:25:50 [employer]: TP MEASUREMENT RESULTS: Intervals: Rate: 76 OH: 158 QRSD: 88 QT: 392 QTc: 441 [place]: P: 71 OH: 158 QRS: -50 T: 56 INTERPRETIVE STATEMENTS: Normal sinus rhythm with sinus arrhythmia Left anterior fascicular block Minimal voltage criteria for LVH, may be normal variant Abnormal ECG Compared to ECG 03/20/2021 15:02:16 Left anterior fascicular block now present Sinus bradycardia no longer present Left-axis deviation no longer present Incomplete right bundle-branch block no longer present T-wave abnormality no longer present Electronically Signed On 12-18-21 09:25:04 CDT by Calvin Holly
--- NOTE | 2021-12-18 09:48 | RAD REPORT ---
EXAM DESCRIPTION: NM - Rest Stress Cardiac Imaging - 12/18/2021 9:35 am CLINICAL HISTORY: Chest pain COMPARISON: None. TECHNIQUE: The patient was administered 10.7 mCi of Tc 99m Sestamibi prior to resting SPECT imaging of the heart. The patient was then administered 32.3 mCi of Tc 99m Sestamibi following exercise or ph armacologic stress. Multiplanar SPECT images were reviewed. FINDINGS: The end diastolic volume is 93 ml, the end systolic volume is 40 ml, and the ejection frac tion is 57 %. No stress-induced ischemic changes are identifiable. Decreased activity along the inferior wall is fi xed and suspected to be diaphragmatic attenuation artifact rather than inferior wall scarring. IMPRESSION: No stress-induced ischemic changes identifiable. Ventricular volumes and ejection fraction are normal range.
--- NOTE | 2021-12-18 09:52 | TREADPHA ---
DX: CHEST PAIN Date of Study: 12/18/2021 Ht: 5' 3 " Wt: 145 lb 0 oz Consulting Physician: LILY MEDICATIONS: LOVENOX, ASPIRIN, SEMGLEE, NOVOLIN-R, LOPRESSOR, LIPITOR HISTORY: HYPERTENSION, DIABETES MELLITUS, CHEST PAIN, SHORTNESS OF BREATH PHYSICIAL EXAMINATION: RESTING B.P.: 126/74 RESTING H.R.: 69 RESTING EKG: SINUS BRADYCARDIA, LEFT VENTRICULAR HYPERTROPHY PROTOCOL: PHARMACOLOGIC EXERCISE TIME: 3:30 B.P. AT [place] STRESS: 117/65 IMPRESSION: LEXISCAN STRESS TEST PERFORMED ORDERED. CARDIOLITE INJECTED INNTAVENOUS PER PROTOCOL. NO SUPRAVENTRICULAR TACHYCARDIA, VENTRICULAR TACHYCARDIA, CHEST PAIN OR ARRHYTHMIAS NOTED. SHORTNESS OF BREATH EXPERIENCED DURING EXAM. SEE NUCLEAR MEDICINE REPORT.
[2021-12-18] MEDS: ASPIRIN EC 81 MG TAB PO SCH (10:09)
[2021-12-18] MEDS: INSULIN GLARGINE 100 UNIT/ML SQ SCH (10:09)
[2021-12-18] MEDS: ENOXAPARIN 40 MG/0.4 ML SQ SCH (10:09)
[2021-12-18] MEDS ORDERED: ACETAMINOPHEN 500 MG TAB PO PRN (10:46)
--- NOTE | 2021-12-18 14:05 | ECHO ---
HEIGHT: 5 ft 3 in WEIGHT: 145 lb 0 oz DATE OF STUDY: 12/18/[address]: Calvin Holly MD 2-DIMENSIONAL: YES M.MODE: YES DOPPLER: YES COLOR FLOW: YES TDS: NO PORTABLE: YES DEFINITY: NO BUBBLE STUDY: NO DIAGNOSIS: CHEST PAIN CARDIAC HISTORY: CATHERIZATION: NO SURGERY: NO PROSTHETIC VALVE: NO PACEMAKER: NO MEASUREMENTS (cm) DIASTOLIC (NORMALS) SYSTOLIC (NORMALS) IVSd 1.2 (0.6-1.2) LA Diam 2.4 (1.9-4.0) LVEF 54% LVIDd 3.7 (3.5-5.7) LVIDs 2.7 (2.0-3.5) %FS 27% LVPWd 1.2 (0.6-1.2) Ao Diam 2.6 (2.0-3.7) 2 DIMENSIONAL ASSESSMENT: RIGHT ATRIUM: NORMAL LEFT ATRIUM: NORMAL RIGHT VENTRICLE: NORMAL LEFT VENTRICLE: NORMAL TRICUSPID VALVE: NORMAL MITRAL VALVE: PULMONIC VALVE: NORMAL AORTIC VALVE: NORMAL PERICARDIAL EFFUSION: NONE AORTIC ROOT: NORMAL LEFT VENTRICULAR WALL MOTION: NORMAL DOPPLER/COLOR FLOW: MILD MITRAL REGURGITATION. COMMENTS: NORMAL LEFT VENTRICULAR EJECTION FRACTION 55-60%. MILD MITRAL REGURGITATION. NORMAL WALL MOTION. TECHNOLOGIST: Nithin DELATORRE
[2021-12-18 14:11] VITALS: O2SAT 100
[2021-12-18 17:19] VITALS: BP 144/71; TEMP 96.9
--- NOTE | 2021-12-19 10:50 | PN ---
Date of Progress Note: 12/18/2021 Ms. Jim has diabetes and hypertension, came in with chest pain that was suspicious for coronary a rtery disease. However, today she had no more pain. She remained in sinus rhythm. Echocardiogram w as normal. MPI was normal. She was cleared to go home. Case was discussed with the admitting physi kelby. We will see her as an outpatient for pain versus recurrence. Continue her present regimen at home. LORNE/MARICRUZ Voice ID: [id number] Report ID: [id number]
== END 2021-12-18 16:40 | disposition home or self-care (01) ==
LOC: ER 18:19 → ERHOLD 21:39 → 2ND 12-17 12:02
PROVIDERS: ADMIT Hospitalist; ATTEND Hospitalist
DX: R07.89 Other chest pain (principal); I10 Essential (primary) hypertension; E11.9 Type 2 diabetes mellitus without complications; E78.5 Hyperlipidemia, unspecified; E04.2 Nontoxic multinodular goiter; F17.210 Nicotine dependence, cigarettes, uncomplicated; Z71.6 Tobacco abuse counseling; Z20.822 Contact with and (suspected) exposure to COVID-19; Z79.84 Long term (current) use of oral hypoglycemic drugs; Z79.4 Long term (current) use of insulin; Z98.51 Tubal ligation status; Z83.3 Family history of diabetes mellitus; Z80.9 Family history of malignant neoplasm, unspecified
CPT/HCPCS: 93005; 93017; 93306; 85025 ×3; 80048; 36415 ×2; 83735; 85610; 80061; 82947 ×9; 80076; 84443; 83036; 84484 ×3; 84439; 80053 ×2; 83880; 70450; 71275; 71045; 93970; 78452; 87811; Q9967; J1650 ×2; J2785; J2405; A9500; 96374; 99285; G0378; J2270; J2765

== ENCOUNTER 2022-02-08 06:40 | Day surgery (SDC) | payer OTHER ==
[2022-02-07 15:03] LABS: SARS-CoV-2 Antigen Rapid Res Negative (Negative)
[2022-02-08] MEDS ORDERED: POVIDONE-IODINE 5% EYE DROPS ONE (06:56)
[2022-02-08] MEDS ORDERED: BSS OPTHALMIC SOL 15 ML OPTH ONE (06:56)
[2022-02-08] MEDS ORDERED: TOBRADEX 0.3-0.1% OPTH OINTMENT ONE (06:57)
[2022-02-08] MEDS ORDERED: HYALURONATE SODIUM 10 MG/ML SYR OPTH ONE (06:57)
[2022-02-08] MEDS ORDERED: DUOVISC 1 KIT OPTH ONE (06:57)
[2022-02-08] MEDS ORDERED: CYCLOPENTOLATE 2% OPTH 2 ML ONE (07:01)
[2022-02-08] MEDS ORDERED: KETOROLAC OPTHALMIC 5 ML BOT ONE (07:01)
[2022-02-08] MEDS ORDERED: TROPICAMIDE 1% OPTH 3 ML BOT ONE (07:01)
[2022-02-08] MEDS ORDERED: MOXIFLOXACIN HCL 0.5% 3ML OPTH OPTH ONE (07:01)
[2022-02-08] MEDS ORDERED: PHENYLEPHRINE 10% OPTH 5ML ONE (07:02)
[2022-02-08] MEDS: NA CHLORIDE 0.9% 500 ML ONE (07:10)
[2022-02-08 07:27] VITALS: O2SAT 100
[2022-02-08] MEDS ORDERED: propofoL 200 MG/20 ML VIAL IV ONE (07:29)
[2022-02-08] MEDS ORDERED: LIDOCAINE 2% MPF 5 ML VIAL ONE (07:30)
[2022-02-08] MEDS ORDERED: FENTANYL CITR 100 MCG/2 ML ONE (07:30)
[2022-02-08] MEDS ORDERED: MIDAZOLAM HCL 2 MG/2 ML INJ ONE (07:31)
[2022-02-08] MEDS ORDERED: ONDANSETRON 4 MG/2 ML VIAL ONE (07:32)
[2022-02-08] MEDS: BALANCED SALT IRRIG PLAIN 500 ML IRR ONE ×2 (07:33→08:05)
[2022-02-08] MEDS: EPINEPHRINE/PF 1 MG/ML AMP ONE ×2 (07:34→08:05)
[2022-02-08] MEDS ORDERED: GLYCOPYRROLATE 0.2 MG/ML SYR ONE (08:07)
[2022-02-08 09:51] VITALS: BP 115/70; TEMP 97.2
--- NOTE | 2022-02-08 21:58 | OP ---
Date of Procedure: 02/08/2022 Surgeon: Josiah Kc MD Housekeeping Manager: None. Procedure Performed: Cataract extraction, left eye with placement of intraocular lens. Preoperative Diagnosis: Visually significant cataract, left eye. Postoperative Diagnosis: Visually significant cataract, left eye. Procedure In Detail: After being properly identified in the preoperative holding, the patient was ta rashard back to the operating room where a time-out was performed. Patient was then prepped and draped i n normal sterile fashion. Examination of the eye underneath the operating microscope revealed a well dilated pupil and a significant posterior subcapsular cataract in addition to the other cataract com ponents. However, this did not prevent a good red reflex and therefore no staining of trypan blue wa s necessary. The globe was grasped with a pair of 0.12 forceps and a paracentesis wound was made at the 12 o'clock and 6 o'clock position using a 0.9 mm lancet and the anterior chamber instilled with d ispersive viscoelastic. Then, the globe was grasped again with a pair of 0.12 forceps and the main p haco incision was made temporally in a triplane fashion using a 2.4 mm keratome. A complete curvilin ear capsular access was created using a cystotome and completed with Utrata forceps. Hydrodissection and hydrodelineation of the lens nucleus were carried out using a Lewis cannula resulting in free ro tation of the lens. The lens was thereafter removed in a standard divide and conquer technique and a total continuous dispersed energy of approximately 14.92 seconds was utilized with the re-addition o f dispersive viscoelastic at approximately 9 seconds worth. Once all 4 quadrants had been removed, t he phaco handpiece was exchanged for bimanual irrigation and aspiration handpieces. The remaining co rtical material was removed and the posterior capsule polished. Most of the posterior capsule catara ct was able to be removed in this fashion and the capsular bag was filled with a cohesive viscoelasti c. A [employer] model DCB00 power 19.5 diopter lens, serial #[id number] was implanted into the capsular bag and then a coaxial I/A handpiece was used to remove all remaining viscoelastic mater ial. The wounds were hydrated and found to be watertight. The procedure concluded having tolerated the procedure well and after confirming that the lens was well centered. The patient was taken to th e postoperative holding area with a pressure patch in place over TobraDex ointment. She is to follow up with myself, Dr. Josiah Kc at the [facility] [place] tomorrow morning. NAS/MARICRUZ Voice ID: [id number] Report ID: [id number]
== END 2022-02-08 09:45 | disposition home or self-care (01) ==
LOC: OR 06:40
PROVIDERS: ATTEND Ophthalmology
PROC: 08RK3JZ Replacement of Left Lens with Synthetic Substitute, Percutaneous Approach (ICD-10-PCS; principal; 2022-02-08 07:30)
DX: H26.8 Other specified cataract (principal); Z20.822 Contact with and (suspected) exposure to COVID-19
CPT/HCPCS: 36415; 82947 ×3; 87811; 66984; J2704; J0171; J2001; J2250; J3010; J7040; J2405; V2632; J3490

== ENCOUNTER 2022-10-17 15:56 | Emergency (ER) | payer OTHER ==
--- OUTSIDE RECORDS SUMMARY | 2022-10-17 16:02 | XMS REPORT | Continuity of Care Document ---
:1960 Author Organization [facility] t Address [address] [place] [address] [place] [id number] Care Team Providers Name Role Phone Leonardo Attending Clinician Unavailable SAMANTHA Attending Clinician Unavailable Carlin Laureano Attending Clinician Unavailable Mindy Jones Attending Clinician [phone] BRIE Attending Clinician Unavailable JAMES CLAY Attending Clinician Unavailable ROXANNE DE SOUZA Attending Clinician Unavailable Leonardo Admitting Clinician Unavailable SAMANTHA Admitting Clinician Unavailable BRIE Admitting Clinician Unavailable Payers Payer Name Policy Type Policy Number Effective Date Expiration Date [facility] [id number] 2022 [facility] 00:00:00 (MEDICAID HMO) INDIGENT PROGRAM [id number] Problems Condition Condition Condition Status Onset Resolution Last Treating Co mments Source Name Details Category Date Date Treatment Clinician Date Diabetes Diabetes Problem Active [facility] 12[facility] Anxiety Anxiety Problem Active [facility] 12[facility]28 [facility] Allergies, Adverse Reactions, Alerts Allergy Allergy Status Severity Reaction(s) Onset Inactive Treating Comm ents Source Name Type Date Date Clinician Tylenol Allergy Active Other [facility] sub[facility] Social History Smoking Status Start Date Stop Date Source Never Smoker [facility] Current Some Day Smoker [facility] Medications Ordered Filled Start Stop Current Ordering Indication Dosage Frequency Signature Comments Components Source Medication Medication Date Date Medication? Clinician (SIG) Name Name alogliptin alogliptin No 1 BID alogliptin [facility] 12.5 12.5 8-04 12.5 [facility] mg-metformi mg-metformi 00:00: mg-metform ty n 500 mg n 500 mg 00 in 500 mg [facility] tablet Take tablet Take tablet l 1 tablet 1 tablet Take 1 Clini cs twice a day twice a day tablet by oral by oral twice a route. route. day by oral route. alogliptin alogliptin No 1 BID alogliptin [facility] 12.5 12.5 8-04 12.5 [facility] mg-metformi mg-metformi 00:00: mg-metform ty n 500 mg n 500 mg 00 in 500 mg [facility] tablet Take tablet Take tablet l 1 tablet 1 tablet Take 1 Clini cs twice a day twice a day tablet by oral by oral twice a route. route. day by oral route. alogliptin alogliptin No 1 BID alogliptin [facility] 12.5 12.5 8-04 12.5 [facility] mg-metformi mg-metformi 00:00: mg-metform ty n 500 mg n 500 mg 00 in 500 mg [facility] tablet Take tablet Take tablet l 1 tablet 1 tablet Take 1 Clini cs twice a day twice a day tablet by oral by oral twice a route. route. day by oral route. acyclovir acyclovir No 1 Q8H acyclovir [facility] 400 mg 400 mg 400 mg [facility] tablet Take tablet Take tablet ty 1 tablet 1 tablet Take 1 Hospi ta every 8 every 8 tablet l hours by hours by every 8 Clin ics oral route oral route hours by for 7 days. for 7 days. oral route for 7 days. alogliptin alogliptin No 1 BID alogliptin [facility] 12.5 12.5 12.5 [facility] mg-metformi mg-metformi mg-metform ty n 500 mg n 500 mg in 500 mg [facility] tablet Take tablet Take tablet l 1 tablet 1 tablet Take 1 Clini [facility] twice a day twice a day tablet by oral by oral twice a route. route. day by oral route. amitriptyli amitriptyli No 1 Q1D amitriptyl [facility] ne 25 mg ne 25 mg ine 25 mg [facility] tablet Take tablet Take tablet ty 1 tablet 1 tablet Take 1 Hospi ta every day every day tablet l by oral by oral every day Clin ics route at route at by oral bedtime. bedtime. route at bedtime. amlodipine amlodipine No 1 Q1D amlodipine [facility] 10 10 10 [facility] mg-atorvast mg-atorvast mg-atorvas ty atin 40 mg atin 40 mg tatin 40 Hospita tablet Take tablet Take mg tablet l 1 tablet 1 tablet Take 1 Clini cs every day every day tablet by oral by oral every day route at route at by oral bedtime. bedtime. route at bedtime. Asprin Ec Asprin Ec No 1 Q1D Asprin Ec [facility] Low Dose 81 Low Dose 81 Low Dose [facility] mg mg 81 mg ty tablet,nini tablet,nini tablet,del Hospita yed release yed release ayed l Take 1 Take 1 release Clinics tablet tablet Take 1 every day every day tablet by oral by oral every day route. route. by oral route. glipizide glipizide No 1 Q1D glipizide [facility] 10 mg 10 mg 10 mg [facility] tablet Take tablet Take tablet ty 1 tablet 1 tablet Take 1 Hospi ta every day every day tablet l by oral by oral every day Clin ics route in route in by oral the the route in morning. morning. the morning. hydrochloro hydrochloro No 1 Q1D hydrochlor [facility] thiazide 25 thiazide 25 othiazide [facility] mg tablet mg tablet 25 mg ty Take 1 Take 1 tablet Hospita tablet tablet Take 1 l every day every day tablet Cli nics by oral by oral every day route in route in by oral the the route in morning. morning. the morning. acyclovir acyclovir No 1 Q8H acyclovir [facility] 400 mg 400 mg 400 mg [facility] tablet Take tablet Take tablet ty 1 tablet 1 tablet Take 1 Hospi ta every 8 every 8 tablet l hours by hours by every 8 Clin ics oral route oral route hours by for 7 days. for 7 days. oral route for 7 days. alogliptin alogliptin No 1 BID alogliptin [facility] 12.5 12.5 12.5 [facility] mg-metformi mg-metformi mg-metform ty n 500 mg n 500 mg in 500 mg [facility] tablet Take tablet Take tablet l 1 tablet 1 tablet Take 1 Clini cs twice a day twice a day tablet by oral by oral twice a route. route. day by oral route. amitriptyli amitriptyli No 1 Q1D amitriptyl [facility] ne 25 mg ne 25 mg ine 25 mg [facility] tablet Take tablet Take tablet ty 1 tablet 1 tablet Take 1 Hospi ta every day every day tablet l by oral by oral every day Clin ics route at route at by oral bedtime. bedtime. route at bedtime. amlodipine amlodipine No 1 Q1D amlodipine [facility] 10 10 10 [facility] mg-atorvast mg-atorvast mg-atorvas ty atin 40 mg atin 40 mg tatin 40 [facility]ospita tablet Take tablet Take mg tablet l 1 tablet 1 tablet Take 1 Clini cs every day every day tablet by oral by oral every day route at route at by oral bedtime. bedtime. route at bedtime. Asprin Ec Asprin Ec No 1 Q1D Asprin Ec [facility] Low Dose 81 Low Dose 81 Low Dose [facility] mg mg 81 mg ty tablet,nini tablet,nini tablet,del [facility]ospita yed release yed release ayed l Take 1 Take 1 release Clinics tablet tablet Take 1 every day every day tablet by oral by oral every day route. route. by oral route. Farxiga 5 Farxiga 5 No 1 Q1D Farxiga 5 [facility] mg tablet mg tablet mg tablet [facility] Take 1 Take 1 Take 1 ty tablet tablet tablet Hospita every day every day every day l by oral by oral by oral Clinic s route. route. route. gabapentin gabapentin No 1capsul TID gabapentin [facility] 300 mg 300 mg e(s) 300 mg [facility] capsule capsule capsule ty Take 1 Take 1 Take 1 [facility]ospita capsule 3 capsule 3 capsule 3 l times a day times a day times a Clinics by oral by oral day by route. route. oral route. glipizide glipizide No glipizide [facility] 10 mg 10 mg 10 mg [facility] tablet TAKE tablet TAKE tablet ty 1 TABLET BY 1 TABLET BY TAKE 1 Hospita MOUTH EVERY MOUTH EVERY TABLET BY l MORNING MORNING MOUTH Clinics EVERY MORNING hydrochloro hydrochloro No 1 Q1D hydrochlor [facility] thiazide 25 thiazide 25 othiazide [facility] mg tablet mg tablet 25 mg ty Take 1 Take 1 tablet [facility]osp[facility] tablet tablet Take 1 l every day every day tablet Cli nics by oral by oral every day route in route in by oral the the route in morning. morning. the morning. acyclovir acyclovir No 1 Q8H acyclovir [facility] 400 mg 400 mg 400 mg [facility] tablet Take tablet Take tablet ty 1 tablet 1 tablet Take 1 Hospi ta every 8 every 8 tablet l hours by hours by every 8 Clin ics oral route oral route hours by for 7 days. for 7 days. oral route for 7 days. alogliptin alogliptin No 1 BID alogliptin [facility] 12.5 12.5 12.5 [facility] mg-metformi mg-metformi mg-metform ty n 500 mg n 500 mg in 500 mg [facility] tablet Take tablet Take tablet l 1 tablet 1 tablet Take 1 Clini cs twice a day twice a day tablet by oral by oral twice a route. route. day by oral route. amitriptyli amitriptyli No 1 Q1D amitriptyl [facility] ne 25 mg ne 25 mg ine 25 mg [facility] tablet Take tablet Take tablet ty 1 tablet 1 tablet Take 1 Hospi ta every day every day tablet l by oral by oral every day Clin ics route at route at by oral bedtime. bedtime. route at bedtime. amlodipine amlodipine No 1 Q1D amlodipine [facility] 10 10 10 [facility] mg-atorvast mg-atorvast mg-atorvas ty atin 40 mg atin 40 mg tatin 40 [facility]ospita tablet Take tablet Take mg tablet l 1 tablet 1 tablet Take 1 Clini cs every day every day tablet by oral by oral every day route at route at by oral bedtime. bedtime. route at bedtime. Asprin Ec Asprin Ec No 1 Q1D Asprin Ec [facility] Low Dose 81 Low Dose 81 Low Dose [facility] mg mg 81 mg ty tablet,nini tablet,nini tablet,del [facility]ospita yed release yed release ayed l Take 1 Take 1 release Clinics tablet tablet Take 1 every day every day tablet by oral by oral every day route. route. by oral route. Farxiga 5 Farxiga 5 No 1 Q1D Farxiga 5 [facility] mg tablet mg tablet mg tablet [facility] Take 1 Take 1 Take 1 ty tablet tablet tablet Hospita every day every day every day l by oral by oral by oral Clinic s route. route. route. gabapentin gabapentin No 1capsul TID gabapentin [facility] 300 mg 300 mg e(s) 300 mg [facility] capsule capsule capsule ty Take 1 Take 1 Take 1 [facility]ospita capsule 3 capsule 3 capsule 3 l times a day times a day times a Clinics by oral by oral day by route. route. oral route. glipizide glipizide No glipizide [facility] 10 mg 10 mg 10 mg [facility] tablet TAKE tablet TAKE tablet ty 1 TABLET BY 1 TABLET BY TAKE 1 Hospita MOUTH EVERY MOUTH EVERY TABLET BY l MORNING MORNING MOUTH Clinics EVERY MORNING hydrochloro hydrochloro No 1 Q1D hydrochlor [facility] thiazide 25 thiazide 25 othiazide [facility] mg tablet mg tablet 25 mg ty Take 1 Take 1 tablet [facility]osp[facility] tablet tablet Take 1 l every day every day tablet Cli nics by oral by oral every day route in route in by oral the the route in morning. morning. the morning. amlodipine amlodipine No amlodipine [facility] 10 10 10 [facility] mg-atorvast mg-atorvast mg-atorvas ty atin 40 mg atin 40 mg tatin 40 [facility]osp[facility] tablet TAKE tablet TAKE mg tablet l 1 TABLET BY 1 TABLET BY TAKE 1 Clinics MOUTH EVERY MOUTH EVERY TABLET BY NIGHT AT NIGHT AT MOUTH BEDTIME BEDTIME EVERY NIGHT AT BEDTIME Asprin Ec Asprin Ec No 1 Q1D Asprin Ec [facility] Low Dose 81 Low Dose 81 Low Dose [facility] mg mg 81 mg ty tablet,nini tablet,nini tablet,del [facility]osp[facility] yed release yed release ayed l Take 1 Take 1 release Clinics tablet tablet Take 1 every day every day tablet by oral by oral every day route. route. by oral route. cholecalcif cholecalcif No 1capsul Q1W cholecalci [facility] charleen charleen e(s) ferol [facility] (vitamin (vitamin (vitamin ty D3) 1,250 D3) 1,250 D3) 1,250 [facility]ospita mcg (50,000 mcg (50,000 mcg l unit) unit) (50,000 Clinics capsule capsule unit) Take 1 Take 1 capsule capsule capsule Take 1 every week every week capsule by oral by oral every week route. route. by oral route. Farxiga 5 Farxiga 5 No 1 Q1D Farxiga 5 [facility] mg tablet mg tablet mg tablet [facility] Take 1 Take 1 Take 1 ty tablet tablet tablet [facility]ospita every day every day every day l by oral by oral by oral Clinic s route for route for route for 30 days. 30 days. 30 days. gabapentin gabapentin No 1capsul TID gabapentin [facility] 300 mg 300 mg e(s) 300 mg [facility] capsule capsule capsule ty Take 1 Take 1 Take 1 Hospita capsule 3 capsule 3 capsule 3 l times a day times a day times a Clinics by oral by oral day by route. route. oral route. glipizide glipizide No glipizide [facility] 10 mg 10 mg 10 mg [facility] tablet TAKE tablet TAKE tablet ty 1 TABLET BY 1 TABLET BY TAKE 1 [facility]ospita MOUTH EVERY MOUTH EVERY TABLET BY l MORNING MORNING MOUTH Clinics EVERY MORNING hydrochloro hydrochloro No hydrochlor [facility] thiazide 25 thiazide 25 othiazide [facility] mg tablet mg tablet 25 mg ty TAKE 1 TAKE 1 tablet [facility]osp[facility] TABLET BY TABLET BY TAKE 1 l MOUTH EVERY MOUTH EVERY TABLET BY Clinics MORNING MORNING MOUTH EVERY MORNING sertraline sertraline No 1 Q1D sertraline [facility] 25 mg 25 mg 25 mg [facility] tablet Take tablet Take tablet ty 1 tablet 1 tablet Take 1 Hospi ta every day every day tablet l by oral by oral every day Clin ics route for route for by oral 30 days. 30 days. route for 30 days. Vitamin D3 Vitamin D3 No 1capsul Q1D Vitamin D3 [facility] 50 mcg 50 mcg e(s) 50 mcg [facility] (2,000 (2,000 (2,000 ty unit) unit) unit) Hospita capsule capsule capsule l Take 1 Take 1 Take 1 Clinics capsule capsule capsule every day every day every day by oral by oral by oral route. route. route. amlodipine amlodipine No amlodipine [facility] 10 10 10 [facility] mg-atorvast mg-atorvast mg-atorvas ty atin 40 mg atin 40 mg tatin 40 [facility]ospita tablet TAKE tablet TAKE mg tablet l 1 TABLET BY 1 TABLET BY TAKE 1 Clinics MOUTH EVERY MOUTH EVERY TABLET BY NIGHT AT NIGHT AT MOUTH BEDTIME BEDTIME EVERY NIGHT AT BEDTIME Asprin Ec Asprin Ec No 1 Q1D Asprin Ec [facility] Low Dose 81 Low Dose 81 Low Dose [facility] mg mg 81 mg ty tablet,nini tablet,nini tablet,del [facility]osp[facility] yed release yed release ayed l Take 1 Take 1 release Clinics tablet tablet Take 1 every day every day tablet by oral by oral every day route. route. by oral route. cephalexin cephalexin No 1capsul BID cephalexin [facility] 500 mg 500 mg e(s) 500 mg [facility] capsule capsule capsule ty Take 1 Take 1 Take 1 [facility]ospita capsule capsule capsule l twice a day twice a day twice a Clinics by oral by oral day by route for 7 route for 7 oral route days. days. for 7 days. cholecalcif cholecalcif No 1capsul Q1W cholecalci [facility] charleen charleen e(s) ferol [facility] (vitamin (vitamin (vitamin ty D3) 1,250 D3) 1,250 D3) 1,250 [facility]osp[facility] mcg (50,000 mcg (50,000 mcg l unit) unit) (50,000 Clinics capsule capsule unit) Take 1 Take 1 capsule capsule capsule Take 1 every week every week capsule by oral by oral every week route. route. by oral route. Farxiga 5 Farxiga 5 No 1 Q1D Farxiga 5 [facility] mg tablet mg tablet mg tablet [facility] Take 1 Take 1 Take 1 ty tablet tablet tablet [facility]ospita every day every day every day l by oral by oral by oral Clinic s route for route for route for 30 days. 30 days. 30 days. gabapentin gabapentin No 1capsul TID gabapentin [facility] 300 mg 300 mg e(s) 300 mg [facility] capsule capsule capsule ty Take 1 Take 1 Take 1 [facility]ospita capsule 3 capsule 3 capsule 3 l times a day times a day times a Clinics by oral by oral day by route. route. oral route. glipizide glipizide No glipizide [facility] 10 mg 10 mg 10 mg [facility] tablet TAKE tablet TAKE tablet ty 1 TABLET BY 1 TABLET BY TAKE 1 [facility]ospita MOUTH EVERY MOUTH EVERY TABLET BY l MORNING MORNING MOUTH Clinics EVERY MORNING hydrochloro hydrochloro No hydrochlor [facility] thiazide 25 thiazide 25 othiazide [facility] mg tablet mg tablet 25 mg ty TAKE 1 TAKE 1 tablet [facility] TABLET BY TABLET BY TAKE 1 l MOUTH EVERY MOUTH EVERY TABLET BY Clinics MORNING MORNING MOUTH EVERY MORNING mupirocin 2 mupirocin 2 No mupirocin [facility] % topical % topical 2 % Commu ni ointment ointment topical ty APPLY A APPLY A ointment Hospi ta SMALL SMALL APPLY A l AMOUNT TO AMOUNT TO SMALL Clin ics THE THE AMOUNT TO AFFECTED AFFECTED THE AREA BY AREA BY AFFECTED TOPICAL TOPICAL AREA BY ROUTE 3 ROUTE 3 TOPICAL TIMES PER TIMES PER ROUTE 3 DAY DAY TIMES PER DAY sertraline sertraline No 1 Q1D sertraline [facility] 25 mg 25 mg 25 mg [facility] tablet Take tablet Take tablet ty 1 tablet 1 tablet Take 1 Hospi ta every day every day tablet l by oral by oral every day Clin ics route for route for by oral 30 days. 30 days. route for 30 days. Vitamin D3 Vitamin D3 No 1capsul Q1D Vitamin D3 [facility] 50 mcg 50 mcg e(s) 50 mcg [facility] (2,000 (2,000 (2,000 ty unit) unit) unit) [facility]ospita capsule capsule capsule l Take 1 Take 1 Take 1 Clinics capsule capsule capsule every day every day every day by oral by oral by oral route. route. route. amlodipine amlodipine No amlodipine [facility] 10 10 10 [facility] mg-atorvast mg-atorvast mg-atorvas ty atin 40 mg atin 40 mg tatin 40 [facility] tablet TAKE tablet TAKE mg tablet l 1 TABLET BY 1 TABLET BY TAKE 1 Clinics MOUTH EVERY MOUTH EVERY TABLET BY NIGHT AT NIGHT AT MOUTH BEDTIME BEDTIME EVERY NIGHT AT BEDTIME Asprin Ec Asprin Ec No 1 Q1D Asprin Ec [facility] Low Dose 81 Low Dose 81 Low Dose [facility] mg mg 81 mg ty tablet,nini tablet,nini tablet,del [facility] yed release yed release ayed l Take 1 Take 1 release Clinics tablet tablet Take 1 every day every day tablet by oral by oral every day route. route. by oral route. Bactrim DS Bactrim DS No 1 Q12H Bactrim DS [facility] 800 mg-160 800 mg-160 800 mg-160 [facility] mg tablet mg tablet mg tablet ty Take 1 Take 1 Take 1 [facility]ospita tablet tablet tablet l every 12 every 12 every 12 Cli nics hours by hours by hours by oral route oral route oral route for 5 days. for 5 days. for 5 days. cephalexin cephalexin No 1capsul BID cephalexin [facility] 500 mg 500 mg e(s) 500 mg [facility] capsule capsule capsule ty Take 1 Take 1 Take 1 [facility]ospita capsule capsule capsule l twice a day twice a day twice a Clinics by oral by oral day by route for 7 route for 7 oral route days. days. for 7 days. cholecalcif cholecalcif No 1capsul Q1W cholecalci [facility] charleen charleen e(s) ferol [facility] (vitamin (vitamin (vitamin ty D3) 1,250 D3) 1,250 D3) 1,250 [facility] mcg (50,000 mcg (50,000 mcg l unit) unit) (50,000 Clinics capsule capsule unit) Take 1 Take 1 capsule capsule capsule Take 1 every week every week capsule by oral by oral every week route. route. by oral route. Farxiga 5 Farxiga 5 No 1 Q1D Farxiga 5 [facility] mg tablet mg tablet mg tablet [facility] Take 1 Take 1 Take 1 ty tablet tablet tablet [facility]osp[facility] every day every day every day l by oral by oral by oral Clinic s route for route for route for 30 days. 30 days. 30 days. gabapentin gabapentin No 1capsul TID gabapentin [facility] 300 mg 300 mg e(s) 300 mg [facility] capsule capsule capsule ty Take 1 Take 1 Take 1 [facility]ospita capsule 3 capsule 3 capsule 3 l times a day times a day times a Clinics by oral by oral day by route. route. oral route. glipizide glipizide No glipizide [facility] 10 mg 10 mg 10 mg [facility] tablet TAKE tablet TAKE tablet ty 1 TABLET BY 1 TABLET BY TAKE 1 [facility]ospita MOUTH EVERY MOUTH EVERY TABLET BY l MORNING MORNING MOUTH Clinics EVERY MORNING hydrochloro hydrochloro No hydrochlor [facility] thiazide 25 thiazide 25 othiazide [facility] mg tablet mg tablet 25 mg ty TAKE 1 TAKE 1 tablet [facility] TABLET BY TABLET BY TAKE 1 l MOUTH EVERY MOUTH EVERY TABLET BY Clinics MORNING MORNING MOUTH EVERY MORNING mupirocin 2 mupirocin 2 No mupirocin [facility] % topical % topical 2 % [facility] ni ointment ointment topical ty APPLY A APPLY A ointment Hospi ta SMALL SMALL APPLY A l AMOUNT TO AMOUNT TO SMALL Clin ics THE THE AMOUNT TO AFFECTED AFFECTED THE AREA BY AREA BY AFFECTED TOPICAL TOPICAL AREA BY ROUTE 3 ROUTE 3 TOPICAL TIMES PER TIMES PER ROUTE 3 DAY DAY TIMES PER DAY sertraline sertraline No 1 Q1D sertraline [facility] 25 mg 25 mg 25 mg [facility] tablet Take tablet Take tablet ty 1 tablet 1 tablet Take 1 Hospi ta every day every day tablet l by oral by oral every day Clin ics route for route for by oral 30 days. 30 days. route for 30 days. Vitamin D3 Vitamin D3 No 1capsul Q1D Vitamin D3 [facility] 50 mcg 50 mcg e(s) 50 mcg [facility] (2,000 (2,000 (2,000 ty unit) unit) unit) [facility]osp[facility] capsule capsule capsule l Take 1 Take 1 Take 1 Clinics capsule capsule capsule every day every day every day by oral by oral by oral route. route. route. alogliptin alogliptin No 1 BID alogliptin [facility] 12.5 12.5 12.5 [facility] mg-metformi mg-metformi mg-metform ty n 500 mg n 500 mg in 500 mg [facility] tablet Take tablet Take tablet l 1 tablet 1 tablet Take 1 [facility] cs twice a day twice a day tablet by oral by oral twice a route for route for day by 30 days. 30 days. oral route for 30 days. amlodipine amlodipine No amlodipine [facility] 10 10 10 [facility] mg-atorvast mg-atorvast mg-atorvas ty atin 40 mg atin 40 mg tatin 40 [facility] tablet TAKE tablet TAKE mg tablet l 1 TABLET BY 1 TABLET BY TAKE 1 Clinics MOUTH EVERY MOUTH EVERY TABLET BY NIGHT AT NIGHT AT MOUTH BEDTIME BEDTIME EVERY NIGHT AT BEDTIME Asprin Ec Asprin Ec No 1 Q1D Asprin Ec [facility] Low Dose 81 Low Dose 81 Low Dose [facility] mg mg 81 mg ty tablet,nini tablet,nini tablet,del [facility] yed release yed release ayed l Take 1 Take 1 release Clinics tablet tablet Take 1 every day every day tablet by oral by oral every day route. route. by oral route. Farxiga 5 Farxiga 5 No 1 Q1D Farxiga 5 [facility] mg tablet mg tablet mg tablet [facility] Take 1 Take 1 Take 1 ty tablet tablet tablet [facility]osp[facility] every day every day every day l by oral by oral by oral Clinic s route for route for route for 30 days. 30 days. 30 days. gabapentin gabapentin No 1capsul TID gabapentin [facility] 300 mg 300 mg e(s) 300 mg [facility] capsule capsule capsule ty Take 1 Take 1 Take 1 [facility] capsule 3 capsule 3 capsule 3 l times a day times a day times a Clinics by oral by oral day by route. route. oral route. glipizide glipizide No glipizide [facility] 10 mg 10 mg 10 mg [facility] tablet TAKE tablet TAKE tablet ty 1 TABLET BY 1 TABLET BY TAKE 1 [facility] MOUTH EVERY MOUTH EVERY TABLET BY l MORNING MORNING MOUTH Clinics EVERY MORNING hydrochloro hydrochloro No hydrochlor [facility] thiazide 25 thiazide 25 othiazide [facility] mg tablet mg tablet 25 mg ty TAKE 1 TAKE 1 tablet [facility] TABLET BY TABLET BY TAKE 1 l MOUTH EVERY MOUTH EVERY TABLET BY Clinics MORNING MORNING MOUTH EVERY MORNING sertraline sertraline No 1 Q1D sertraline [facility] 25 mg 25 mg 25 mg [facility] tablet Take tablet Take tablet ty 1 tablet 1 tablet Take 1 Hospi ta every day every day tablet l by oral by oral every day Clin ics route for route for by oral 30 days. 30 days. route for 30 days. Vitamin D3 Vitamin D3 No 1capsul Q1D Vitamin D3 [facility] 50 mcg 50 mcg e(s) 50 mcg [facility] (2,000 (2,000 (2,000 ty unit) unit) unit) [facility]osp[facility] capsule capsule capsule l Take 1 Take 1 Take 1 Clinics capsule capsule capsule every day every day every day by oral by oral by oral route. route. route. amlodipine amlodipine No 1 Q1D amlodipine [facility] 10 mg 10 mg 10 mg [facility] tablet Take tablet Take tablet ty 1 tablet 1 tablet Take 1 Hospi ta every day every day tablet l by oral by oral every day Clin ics route for route for by oral 90 days. 90 days. route for 90 days. Asprin Ec Asprin Ec No 1 Q1D Asprin Ec [facility] Low Dose 81 Low Dose 81 Low Dose [facility] mg mg 81 mg ty tablet,nini tablet,nini tablet,del [facility] yed release yed release ayed l Take 1 Take 1 release Clinics tablet tablet Take 1 every day every day tablet by oral by oral every day route. route. by oral route. atorvastati atorvastati No 1 Q1D atorvastat [facility] n 40 mg n 40 mg in 40 mg [facility] tablet Take tablet Take tablet ty 1 tablet 1 tablet Take 1 Hospi ta every day every day tablet l by oral by oral every day Clin ics route for route for by oral 90 days. 90 days. route for 90 days. gabapentin gabapentin No 1capsul TID gabapentin [facility] 300 mg 300 mg e(s) 300 mg [facility] capsule capsule capsule ty Take 1 Take 1 Take 1 [facility] capsule 3 capsule 3 capsule 3 l times a day times a day times a Clinics by oral by oral day by route. route. oral route. glimepiride glimepiride No glimepirid [facility] 4 mg tablet 4 mg tablet e 4 mg [facility] Take 1 Take 1 tablet ty tablet tablet Take 1 [facility]osp[facility] every day every day tablet l by oral by oral every day Clin ics route for route for by oral 90 days. 90 days. route for 90 days. glipizide glipizide No glipizide [facility] 10 mg 10 mg 10 mg [facility] tablet TAKE tablet TAKE tablet ty 1 TABLET BY 1 TABLET BY TAKE 1 [facility] MOUTH EVERY MOUTH EVERY TABLET BY l DAY IN THE DAY IN THE MOUTH Cl inics MORNING MORNING EVERY DAY IN THE MORNING hydrochloro hydrochloro No hydrochlor [facility] thiazide 25 thiazide 25 othiazide [facility] mg tablet mg tablet 25 mg ty TAKE 1 TAKE 1 tablet [facility] TABLET BY TABLET BY TAKE 1 l MOUTH EVERY MOUTH EVERY TABLET BY Clinics DAY IN THE DAY IN THE MOUTH MORNING MORNING EVERY DAY IN THE MORNING Lantus Lantus No 10unit( Q1D Lantus [facility] Solostar s) Sol[facility]ar Com jesusita U-100 U-100 U-100 ty Insulin 100 Insulin 100 Insulin [facility] unit/mL (3 unit/mL (3 100 l mL) mL) unit/mL (3 Clinics subcutaneou subcutaneou mL) s pen s pen subcutaneo Inject 10 Inject 10 us pen units every units every Inject 10 day by day by units subcutaneou subcutaneou every day s route in s route in by the evening the evening subcutaneo for 30 for 30 us route days. days. in the evening for 30 days. metformin metformin No metformin [facility] 1,000 mg 1,000 mg 1,000 mg Com jesusita tablet Take tablet Take tablet ty 1 tablet 1 tablet Take 1 Hospi ta twice a day twice a day tablet l by oral by oral twice a Clinic s route for route for day by 90 days. 90 days. oral route for 90 days. Prescriptio Prescriptio No Prescripti [facility] n - Prior n - Prior on - Prior Communi Authorizati Authorizati Authorizat ty on Request on Request gavi leea Request l Clinics sertraline sertraline No sertraline [facility] 25 mg 25 mg 25 mg [facility] tablet TAKE tablet TAKE tablet ty 1 TABLET BY 1 TABLET BY TAKE 1 Hospita MOUTH EVERY MOUTH EVERY TABLET BY l DAY FOR 30 DAY FOR 30 MOUTH Cl inics DAYS DAYS EVERY DAY FOR 30 DAYS sertraline sertraline No 1 Q1D sertraline [facility] 50 mg 50 mg 50 mg [facility] tablet Take tablet Take tablet ty 1 tablet 1 tablet Take 1 Hospi ta every day every day tablet l by oral by oral every day Clin ics route for route for by oral 90 days. 90 days. route for 90 days. Vitamin D3 Vitamin D3 No 1capsul Q1D Vitamin D3 [facility] 50 mcg 50 mcg e(s) 50 mcg Communi (2,000 (2,000 (2,000 ty unit) unit) unit) Hospita capsule capsule capsule l Take 1 Take 1 Take 1 Clinics capsule capsule capsule every day every day every day by oral by oral by oral route. route. route. amlodipine amlodipine No 1 Q1D amlodipine [facility] 10 mg 10 mg 10 mg [facility] tablet Take tablet Take tablet ty 1 tablet 1 tablet Take 1 Hospi ta every day every day tablet l by oral by oral every day Clin ics route for route for by oral 90 days. 90 days. route for 90 days. Asprin Ec Asprin Ec No 1 Q1D Asprin Ec [facility] Low Dose 81 Low Dose 81 Low Dose [facility] mg mg 81 mg ty tablet,nini tablet,nini tablet,del [facility]ospita yed release yed release ayed l Take 1 Take 1 release Clinics tablet tablet Take 1 every day every day tablet by oral by oral every day route. route. by oral route. atorvastati atorvastati No 1 Q1D atorvastat [facility] n 40 mg n 40 mg in 40 mg Commu ni tablet Take tablet Take tablet ty 1 tablet 1 tablet Take 1 Hospi ta every day every day tablet l by oral by oral every day Clin ics route for route for by oral 90 days. 90 days. route for 90 days. BD Veronica 2nd BD Veronica 2nd No BD Veronica [facility] Gen Pen Gen Pen 2nd Gen Commun i Needle 32 Needle 32 Pen Needle ty gauge x gauge x 32 gauge x Hos betty " USE " USE " USE l Clinics DIRECTED. DIRECTED. DIRECTED. gabapentin gabapentin No 1capsul TID gabapentin [facility] 300 mg 300 mg e(s) 300 mg [facility] capsule capsule capsule ty Take 1 Take 1 Take 1 Hospita capsule 3 capsule 3 capsule 3 l times a day times a day times a Clinics by oral by oral day by route. route. oral route. glimepiride glimepiride No glimepirid [facility] 4 mg tablet 4 mg tablet e 4 mg [facility] Take 1 Take 1 tablet ty tablet tablet Take 1 Hospita every day every day tablet l by oral by oral every day Clin ics route for route for by oral 90 days. 90 days. route for 90 days. glipizide glipizide No glipizide [facility] 10 mg 10 mg 10 mg [facility] tablet TAKE tablet TAKE tablet ty 1 TABLET BY 1 TABLET BY TAKE 1 Hospita MOUTH EVERY MOUTH EVERY TABLET BY l DAY IN THE DAY IN THE MOUTH Cl inics MORNING MORNING EVERY DAY IN THE MORNING hydrochloro hydrochloro No hydrochlor [facility] thiazide 25 thiazide 25 othiazide [facility] mg tablet mg tablet 25 mg ty TAKE 1 TAKE 1 tablet Hospita TABLET BY TABLET BY TAKE 1 l MOUTH EVERY MOUTH EVERY TABLET BY Clinics DAY IN THE DAY IN THE MOUTH MORNING MORNING EVERY DAY IN THE MORNING Lantus Lantus No Lantus [facility] Com jesusita U-100 U-100 U-100 ty Insulin 100 Insulin 100 Insulin [facility] unit/mL (3 unit/mL (3 100 l mL) mL) unit/mL (3 Clinics subcutaneou subcutaneou mL) s pen s pen subcutaneo INJECT 10 INJECT 10 us pen UNITS EVERY UNITS EVERY INJECT 10 DAY BY DAY BY UNITS SUBCUTANEOU SUBCUTANEOU EVERY DAY S ROUTE IN S ROUTE IN BY THE EVENING THE EVENING SUBCUTANEO FOR 30 FOR 30 US ROUTE DAYS. DAYS. IN THE EVENING FOR 30 DAYS. metformin metformin No metformin [facility] 1,000 mg 1,000 mg 1,000 mg Com jesusita tablet Take tablet Take tablet ty 1 tablet 1 tablet Take 1 Hospi ta twice a day twice a day tablet l by oral by oral twice a Clinic s route for route for day by 90 days. 90 days. oral route for 90 days. OneTouch OneTouch No OneTouch Swe miguelina Delica Plus Delica Plus [facility] Lancet 33 Lancet 33 Plus ty gauge gauge Lancet 33 [facility]ospita gauge l Clinics OneTouch OneTouch No OneTouch Swe miguelina Verio test Verio test Verio test [facility] strips strips strips ty Hospita l Clinics Prescriptio Prescriptio No Prescripti [facility] n - Prior n - Prior on - Prior Communi Authorizati Authorizati Authorizat ty on Request on Request ion Hos betty Request l Clinics sertraline sertraline No sertraline [facility] 25 mg 25 mg 25 mg [facility] tablet TAKE tablet TAKE tablet ty 1 TABLET BY 1 TABLET BY TAKE 1 Hospita MOUTH EVERY MOUTH EVERY TABLET BY l DAY FOR 30 DAY FOR 30 MOUTH Cl inics DAYS DAYS EVERY DAY FOR 30 DAYS sertraline sertraline No sertraline [facility] 50 mg 50 mg 50 mg [facility] tablet TAKE tablet TAKE tablet ty 1 TABLET BY 1 TABLET BY TAKE 1 Hospita MOUTH EVERY MOUTH EVERY TABLET BY l DAY DAY MOUTH Clinics EVERY DAY Vitamin D3 Vitamin D3 No 1capsul Q1D Vitamin D3 [facility] 50 mcg 50 mcg e(s) 50 mcg [facility] (2,000 (2,000 (2,000 ty unit) unit) unit) Hospita capsule capsule capsule l Take 1 Take 1 Take 1 Clinics capsule capsule capsule every day every day every day by oral by oral by oral route. route. route. Asprin Ec Asprin Ec No 1 Q1D Asprin Ec [facility] Low Dose 81 Low Dose 81 Low Dose [facility] mg mg 81 mg ty tablet,nini tablet,nini tablet,del Hospita yed release yed release ayed l Take 1 Take 1 release Clinics tablet tablet Take 1 every day every day tablet by oral by oral every day route. route. by oral route. BD Veronica 2nd BD Veronica 2nd No BD Veronica [facility] Gen Pen Gen Pen 2nd Gen Commun i Needle 32 Needle 32 Pen Needle ty gauge x gauge x 32 gauge x Hos betty " USE " USE " USE l Clinics DIRECTED. DIRECTED. DIRECTED. cyclobenzap cyclobenzap No 1 TID cyclobenza [facility] rine 10 mg rine 10 mg mague 10 Communi tablet Take tablet Take mg tablet ty 1 tablet 3 1 tablet 3 Take 1 H ospita times a day times a day tablet 3 l by oral by oral times a Clinic s route as route as day by needed for needed for oral route 7 days. 7 days. as needed for 7 days. diflupredna diflupredna No diflupredn [facility] te 0.05 % te 0.05 % ate 0.05 % Communi eye drops eye drops eye drops ty [facility] Lantus Lantus No Lantus [facility] Sol[facility] Solostar Com jesusita U-100 U-100 U-100 ty Insulin 100 Insulin 100 Insulin [facility] unit/mL (3 unit/mL (3 100 l mL) mL) unit/mL (3 Clinics subcutaneou subcutaneou mL) s pen s pen subcutaneo INJECT 10 INJECT 10 us pen UNITS EVERY UNITS EVERY INJECT 10 DAY BY DAY BY UNITS SUBCUTANEOU SUBCUTANEOU EVERY DAY S ROUTE IN S ROUTE IN BY THE EVENING THE EVENING SUBCUTANEO FOR 30 FOR 30 US ROUTE DAYS. DAYS. IN THE EVENING FOR 30 DAYS. Medrol Medrol No 1dose Q1D Medrol [facility] ([place]) 4 mg ([place]) 4 mg pk(s) ([place]) 4 mg [facility] tablets in tablets in tablets in ty a dose pack a dose pack a dose Hospita Take 1 dose Take 1 dose pack Take l pk every pk every 1 dose pk Cl inics day by oral day by oral every day route as route as by oral directed. directed. route as directed. naproxen naproxen No 1 BID naproxen Swe miguelina 500 mg 500 mg 500 mg [facility] tablet Take tablet Take tablet ty 1 tablet 1 tablet Take 1 Hospi ta twice a day twice a day tablet l by oral by oral twice a Clinic s route with route with day by meals for 7 meals for 7 oral route days. days. with meals for 7 days. OneTouch OneTouch No OneTouch Swe miguelina Delica Plus Delica Plus Del[facility] Lancet 33 Lancet 33 Plus ty gauge gauge Lancet 33 [facility] Clinics OneTouch OneTouch No OneTouch Swe miguelina Verio test Verio test Verio test [facility] strips strips strips ty [facility] prednisolon prednisolon No prednisolo [facility] e acetate 1 e acetate 1 ne acetate Communi % eye % eye 1 % eye ty drops,suspe drops,suspe drops,susp Hospita nsion nsion ension l INSTILL 1 INSTILL 1 INSTILL 1 Clinics DROP INTO DROP INTO DROP INTO LEFT EYE 4 LEFT EYE 4 LEFT EYE 4 TIMES A DAY TIMES A DAY TIMES A DAY Valium 2 mg Valium 2 mg No 1 TID Valium 2 [facility] tablet Take tablet Take mg tablet [facility]i 1 tablet 3 1 tablet 3 Take 1 t y times a day times a day tablet 3 Hospita by oral by oral times a l route as route as day by Clini cs needed for needed for oral route 10 days. 10 days. as needed for 10 days. Asprin Ec Asprin Ec No 1 Q1D Asprin Ec [facility] Low Dose 81 Low Dose 81 Low Dose [facility] mg mg 81 mg ty tablet,nini tablet,nini tablet,del Hospita yed release yed release ayed l Take 1 Take 1 release Clinics tablet tablet Take 1 every day every day tablet by oral by oral every day route. route. by oral route. BD Veronica 2nd BD Veronica 2nd No BD Veronica [facility] Gen Pen Gen Pen 2nd Gen Commun i Needle 32 Needle 32 Pen Needle ty gauge x gauge x 32 gauge x Hos betty " USE " USE " USE l Clinics DIRECTED. DIRECTED. DIRECTED. cyclobenzap cyclobenzap No cyclobenza [facility] rine 10 mg rine 10 mg mague 10 Communi tablet Take tablet Take mg tablet ty 1 tablet 3 1 tablet 3 Take 1 H ospita times a day times a day tablet 3 l by oral by oral times a Clinic s route as route as day by needed for needed for oral route 7 days. 7 days. as needed for 7 days. diazepam 2 diazepam 2 No diazepam 2 [facility] mg tablet mg tablet mg tablet [facility] TAKE 1 TAKE 1 TAKE 1 ty TABLET BY TABLET BY TABLET BY Hospita MOUTH THREE MOUTH THREE MOUTH l TIMES A DAY TIMES A DAY THREE Clinics NEEDED NEEDED TIMES A FOR 10 DAYS FOR 10 DAYS DAY NEEDED FOR 10 DAYS diflupredna diflupredna No diflupredn [facility] te 0.05 % te 0.05 % ate 0.05 % Communi eye drops eye drops eye drops ty Hospita l Clinics FreeStyle FreeStyle No FreeStyle [facility] [place] 14 [place] 14 [place] 14 Com jesusita Day [place] Day [place] Day [place] ty Use as Use as Use as Hospita directed directed directed l every 14 every 14 every 14 Cli nics days days days FreeStyle FreeStyle No FreeStyle [facility] [place] 14 [place] 14 [place] 14 Com jesusita Day Sensor Day Sensor Day Sensor ty kit Use as kit Use as kit Use as Hospita directed directed directed l Clinics Lantus Lantus No Lantus [facility] Solostar Solostar Com jesusita U-100 U-100 U-100 ty Insulin 100 Insulin 100 Insulin [facility]osp[facility] unit/mL (3 unit/mL (3 100 l mL) mL) unit/mL (3 Clinics subcutaneou subcutaneou mL) s pen s pen subcutaneo INJECT 10 INJECT 10 us pen UNITS EVERY UNITS EVERY INJECT 10 DAY BY DAY BY UNITS SUBCUTANEOU SUBCUTANEOU EVERY DAY S ROUTE IN S ROUTE IN BY THE EVENING THE EVENING SUBCUTANEO FOR 30 FOR 30 US ROUTE DAYS. DAYS. IN THE EVENING FOR 30 DAYS. methylpredn methylpredn No methylpred [facility] isolone 4 isolone 4 nisolone 4 Communi mg tablets mg tablets mg tablets ty in a dose in a dose in a dose Hospita pack Take 1 pack Take 1 pack Take l dose pk dose pk 1 dose pk Clin ics every day every day every day by oral by oral by oral route as route as route as directed. directed. directed. naproxen naproxen No naproxen Swe miguelina 500 mg 500 mg 500 mg [facility] tablet Take tablet Take tablet ty 1 tablet 1 tablet Take 1 Hospi ta twice a day twice a day tablet l by oral by oral twice a Clinic s route with route with day by meals for 7 meals for 7 oral route days. days. with meals for 7 days. OneTouch OneTouch No OneTouch Swe miguelina Delica Plus Delica Plus Delica [facility] Lancet 33 Lancet 33 Plus ty gauge gauge Lancet 33 [facility] gauge l Clinics OneTouch OneTouch No OneTouch Swe miguelina Verio test Verio test Verio test [facility] strips strips strips ty Hospita l Clinics prednisolon prednisolon No prednisolo [facility] e acetate 1 e acetate 1 ne acetate Communi % eye % eye 1 % eye ty drops,suspe drops,suspe drops,susp Hospita nsion nsion ension l INSTILL 1 INSTILL 1 INSTILL 1 Clinics DROP INTO DROP INTO DROP INTO LEFT EYE 4 LEFT EYE 4 LEFT EYE 4 TIMES A DAY TIMES A DAY TIMES A DAY amlodipine amlodipine No amlodipine [facility] 10 mg 10 mg 10 mg [facility]i tablet TAKE tablet TAKE tablet ty 1 TABLET BY 1 TABLET BY TAKE 1 Hospita MOUTH EVERY MOUTH EVERY TABLET BY l DAY DAY MOUTH Clinics EVERY DAY Asprin Ec Asprin Ec No 1 Q1D Asprin Ec [facility] Low Dose 81 Low Dose 81 Low Dose [facility] mg mg 81 mg ty tablet,nini tablet,nini tablet,del Hospita yed release yed release ayed l Take 1 Take 1 release Clinics tablet tablet Take 1 every day every day tablet by oral by oral every day route. route. by oral route. atorvastati atorvastati No atorvastat [facility] n 40 mg n 40 mg in 40 mg Commu ni tablet TAKE tablet TAKE tablet ty 1 TABLET BY 1 TABLET BY TAKE 1 Hospita MOUTH EVERY MOUTH EVERY TABLET BY l DAY DAY MOUTH Clinics EVERY DAY BD Veronica 2nd BD Veronica 2nd No BD Veronica [facility] Gen Pen Gen Pen 2nd Gen Commun i Needle 32 Needle 32 Pen Needle ty gauge x gauge x 32 gauge x Hos betty 5/32" USE 5/32" USE 5/32" USE l Clinics DIRECTED. DIRECTED. DIRECTED. capsaicin capsaicin No 1applic TID capsaicin [facility] 0.1 % 0.1 % ation(s 0.1 % Communi topical topical ) topical ty cream [facility] Apply [facility] l application application applicatio Clinics 3 times a 3 times a n 3 times day by day by a day by topical topical topical route as route as route as needed for needed for needed for 30 days. 30 days. 30 days. cyclobenzap cyclobenzap No cyclobenza [facility] rine 10 mg rine 10 mg mague 10 Communi tablet Take tablet Take mg tablet ty 1 tablet 3 1 tablet 3 Take 1 H ospita times a day times a day tablet 3 l by oral by oral times a Clinic s route as route as day by needed for needed for oral route 7 days. 7 days. as needed for 7 days. diazepam 2 diazepam 2 No diazepam 2 [facility] mg tablet mg tablet mg tablet [facility]i TAKE 1 TAKE 1 TAKE 1 ty TABLET BY TABLET BY TABLET BY Hospita MOUTH THREE MOUTH THREE MOUTH l TIMES A DAY TIMES A DAY THREE Clinics NEEDED NEEDED TIMES A FOR 10 DAYS FOR 10 DAYS DAY NEEDED FOR 10 DAYS diflupredna diflupredna No diflupredn [facility] te 0.05 % te 0.05 % ate 0.05 % Communi eye drops eye drops eye drops ty Hospita l Clinics FreeStyle FreeStyle No FreeStyle [facility] [place] 14 [place] 14 [place] 14 Com jesusita Day [place] Day [place] Day [place] ty Use as Use as Use as Hospita directed directed directed l every 14 every 14 every 14 Cli nics days days days FreeStyle FreeStyle No FreeStyle [facility] [place] 14 [place] 14 [place] 14 Com jesusita Day Sensor Day Sensor Day Sensor ty kit Use as kit Use as kit Use as Hospita directed directed directed l Clinics Lantus Lantus No 20unit( Q1D Lantus [facility] Solostar s) Solostar Com jesusita U-100 U-100 U-100 ty Insulin 100 Insulin 100 Insulin [facility]osp[facility] unit/mL (3 unit/mL (3 100 l mL) mL) unit/mL (3 Clinics subcutaneou subcutaneou mL) s pen s pen subcutaneo Inject 20 Inject 20 us pen units every units every Inject 20 day by day by units subcutaneou subcutaneou every day s route in s route in by the evening the evening subcutaneo for 30 for 30 us route days. days. in the evening for 30 days. naproxen naproxen No naproxen Swe miguelina 500 mg 500 mg 500 mg [facility] tablet Take tablet Take tablet ty 1 tablet 1 tablet Take 1 Hospi ta twice a day twice a day tablet l by oral by oral twice a Clinic s route with route with day by meals for 7 meals for 7 oral route days. days. with meals for 7 days. OneTouch OneTouch No OneTouch Swe miguelina Delica Plus Del[facility] Plus Delica [facility] Lancet 33 Lancet 33 Plus ty gauge gauge Lancet 33 [facility] gauge Clinics OneTouch OneTouch No OneTouch Swe miguelina Verio test Verio test Verio test [facility] strips [facility] amlodipine amlodipine No amlodipine [facility] 10 mg 10 mg 10 mg [facility] tablet TAKE tablet TAKE tablet ty 1 TABLET BY 1 TABLET BY TAKE 1 Hospita MOUTH EVERY MOUTH EVERY TABLET BY l DAY DAY MOUTH Clinics EVERY DAY Asprin Ec Asprin Ec No 1 Q1D Asprin Ec [facility] Low Dose 81 Low Dose 81 Low Dose [facility] mg mg 81 mg ty tablet,nini tablet,nini tablet,del Hospita yed release yed release ayed l Take 1 Take 1 release Clinics tablet tablet Take 1 every day every day tablet by oral by oral every day route. route. by oral route. atorvastati atorvastati No atorvastat [facility] n 40 mg n 40 mg in 40 mg Commu ni tablet TAKE tablet TAKE tablet ty 1 TABLET BY 1 TABLET BY TAKE 1 Hospita MOUTH EVERY MOUTH EVERY TABLET BY l DAY DAY MOUTH Clinics EVERY DAY azithromyci azithromyci No azithromyc [facility] n 250 mg n 250 mg in 250 mg Co m[facility]i tablet TAKE tablet TAKE tablet ty 2 TABLETS 2 TABLETS TAKE 2 Hos betty BY MOUTH BY MOUTH TABLETS BY l TODAY, THEN TODAY, THEN MOUTH Clinics TAKE 1 TAKE 1 TODAY, TABLET TABLET THEN TAKE DAILY FOR 4 DAILY FOR 4 1 TABLET DAYS DAYS DAILY FOR 4 DAYS BD Veronica 2nd BD Veronica 2nd No BD Veronica [facility] Gen Pen Gen Pen 2nd Gen Commun i Needle 32 Needle 32 Pen Needle ty gauge x gauge x 32 gauge x Hos betty 5/32" USE 5/32" USE 5/32" USE l Clinics DIRECTED. DIRECTED. DIRECTED. capsaicin capsaicin No 1applic TID capsaicin [facility] 0.1 % 0.1 % ation(s 0.1 % Communi topical topical ) topical ty cream Apply cream Apply cream [facility] 1 1 Apply 1 l application application applicatio Clinics 3 times a 3 times a n 3 times day by day by a day by topical topical topical route as route as route as needed for needed for needed for 30 days. 30 days. 30 days. Cleocin 100 Cleocin 100 No 1suppos Q1D Cleocin [facility] mg vaginal mg vaginal itor(y/ 100 mg [facility] suppository suppository ies) vaginal ty Insert 1 Insert 1 suppositor H ospita suppository suppository y Insert 1 l every day every day suppositor Clinics by vaginal by vaginal y every route at route at day by bedtime for bedtime for vaginal 3 days. 3 days. route at bedtime for 3 days. cyclobenzap cyclobenzap No cyclobenza [facility] rine 10 mg rine 10 mg mague 10 [facility]i tablet Take tablet Take mg tablet ty 1 tablet 3 1 tablet 3 Take 1 H ospita times a day times a day tablet 3 l by oral by oral times a Clinic s route as route as day by needed for needed for oral route 7 days. 7 days. as needed for 7 days. diazepam 2 diazepam 2 No diazepam 2 [facility] mg tablet mg tablet mg tablet Communi TAKE 1 TAKE 1 TAKE 1 ty TABLET BY TABLET BY TABLET BY Hospita MOUTH THREE MOUTH THREE MOUTH l TIMES A DAY TIMES A DAY THREE Clinics NEEDED NEEDED TIMES A FOR 10 DAYS FOR 10 DAYS DAY NEEDED FOR 10 DAYS diazepam 5 diazepam 5 No diazepam 5 [facility] mg tablet mg tablet mg tablet Communi TAKE 1 TAKE 1 TAKE 1 ty TABLET BY TABLET BY TABLET BY Hospita MOUTH EVERY MOUTH EVERY MOUTH l DAY AT DAY AT EVERY DAY Clinic s BEDTIME FOR BEDTIME FOR AT BEDTIME 30 DAYS 30 DAYS FOR 30 DAYS diflupredna diflupredna No diflupredn [facility] te 0.05 % te 0.05 % ate 0.05 % Communi eye drops eye drops eye drops ty Hospita l Clinics fluconazole fluconazole No 1 Q1D fluconazol [facility] 150 mg 150 mg e 150 mg [facility] tablet Take tablet Take tablet ty 1 tablet 1 tablet Take 1 Hospi ta every day every day tablet l by oral by oral every day Clin ics route for 1 route for 1 by oral day. day. route for 1 day. FreeStyle FreeStyle No FreeStyle [facility] [place] 14 [place] 14 [place] 14 Com jesusita Day [place] Day [place] Day [place] ty Use as Use as Use as Hospita directed directed directed l every 14 every 14 every 14 Cli nics days days days FreeStyle FreeStyle No FreeStyle [facility] [place] 14 [place] 14 [place] 14 Com jesusita Day Sensor Day Sensor Day Sensor ty kit Use as kit Use as kit Use as Hospita directed directed directed l Clinics Lantus Lantus No Lantus [facility] Sol[facility]ar Solostar Com [facility] U-100 U-100 U-100 ty Insulin 100 Insulin 100 Insulin [facility]osp[facility] unit/mL (3 unit/mL (3 100 l mL) mL) unit/mL (3 Clinics subcutaneou subcutaneou mL) s pen s pen subcutaneo INJECT 20 INJECT 20 us pen UNITS EVERY UNITS EVERY INJECT 20 DAY BY DAY BY UNITS SUBCUTANEOU SUBCUTANEOU EVERY DAY S ROUTE IN S ROUTE IN BY THE EVENING THE EVENING SUBCUTANEO FOR 90 FOR 90 US ROUTE DAYS. DAYS. IN THE EVENING FOR 90 DAYS. methylpredn methylpredn No methylpred [facility] isolone 4 isolone 4 nisolone 4 Communi mg tablets mg tablets mg tablets ty in a dose in a dose in a dose Hospita pack TAKE 6 pack TAKE 6 pack TAKE l TABLETS ON TABLETS ON 6 TABLETS Clinics DAY 1 DAY 1 ON DAY 1 DIRECTED ON DIRECTED ON PACKAGE AND PACKAGE AND DIRECTED DECREASE BY DECREASE BY ON PACKAGE 1 TAB EACH 1 TAB EACH AND DAY FOR A DAY FOR A DECREASE TOTAL OF 6 TOTAL OF 6 BY 1 TAB DAYS DAYS EACH DAY FOR A TOTAL OF 6 DAYS naproxen naproxen No naproxen Swe miguelina 500 mg 500 mg 500 mg [facility] tablet Take tablet Take tablet ty 1 tablet 1 tablet Take 1 Hospi ta twice a day twice a day tablet l by oral by oral twice a Clinic s route with route with day by meals for 7 meals for 7 oral route days. days. with meals for 7 days. OneTouch OneTouch No OneTouch Swe miguelina Delica Plus [facility] Plus [facility] Lancet 33 Lancet 33 Plus ty gauge gauge [facility]et 33 [facility] OneTouch OneTouch No OneTouch Swe miguelina Verio test Verio test Verio test Communi strips strips strips ty [facility] l Clinics amlodipine amlodipine No amlodipine [facility] 10 mg 10 mg 10 mg [facility] tablet TAKE tablet TAKE tablet ty 1 TABLET BY 1 TABLET BY TAKE 1 Hospita MOUTH EVERY MOUTH EVERY TABLET BY l DAY DAY MOUTH Clinics EVERY DAY Asprin Ec Asprin Ec No 1 Q1D Asprin Ec [facility] Low Dose 81 Low Dose 81 Low Dose [facility] mg mg 81 mg ty tablet,nini tablet,nini tablet,del Hospita yed release yed release ayed l Take 1 Take 1 release Clinics tablet tablet Take 1 every day every day tablet by oral by oral every day route. route. by oral route. atorvastati atorvastati No atorvastat [facility] n 40 mg n 40 mg in 40 mg Commu ni tablet TAKE tablet TAKE tablet ty 1 TABLET BY 1 TABLET BY TAKE 1 Hospita MOUTH EVERY MOUTH EVERY TABLET BY l DAY DAY MOUTH Clinics EVERY DAY BD Veronica 2nd BD Veronica 2nd No BD Veronica [facility] Gen Pen Gen Pen 2nd Gen Commun i Needle 32 Needle 32 Pen Needle ty gauge x gauge x 32 gauge x Hos betty " USE " USE " USE l Clinics DIRECTED. DIRECTED. DIRECTED. capsaicin capsaicin No 1applic TID capsaicin [facility] 0.1 % 0.1 % ation(s 0.1 % [facility]i topical topical ) topical ty cream Apply cream Apply cream Hospita 1 1 Apply 1 l application application applicatio Clinics 3 times a 3 times a n 3 times day by day by a day by topical topical topical route as route as route as needed for needed for needed for 30 days. 30 days. 30 days. diazepam 5 diazepam 5 No diazepam 5 [facility] mg tablet mg tablet mg tablet [facility]i TAKE 1 TAKE 1 TAKE 1 ty TABLET BY TABLET BY TABLET BY Hospita MOUTH EVERY MOUTH EVERY MOUTH l DAY AT DAY AT EVERY DAY Clinic s BEDTIME FOR BEDTIME FOR AT BEDTIME 30 DAYS 30 DAYS FOR 30 DAYS diflupredna diflupredna No diflupredn [facility] te 0.05 % te 0.05 % ate 0.05 % Communi eye drops eye drops eye drops ty Hospita l Clinics FreeStyle FreeStyle No FreeStyle [facility] [place] 14 [place] 14 [place] 14 Com jesusita Day [place] Day [place] Day [place] ty Use as Use as Use as Hospita directed directed directed l every 14 every 14 every 14 Cli nics days days days FreeStyle FreeStyle No FreeStyle [facility] [place] 14 [place] 14 [place] 14 Com jesusita Day Sensor Day Sensor Day Sensor ty kit Use as kit Use as kit Use as Hospita directed directed directed l Clinics Lantus Lantus No Lantus [facility] Solostar Solostar Com jesusita U-100 U-100 U-100 ty Insulin 100 Insulin 100 Insulin [facility]ospita unit/mL (3 unit/mL (3 100 l mL) mL) unit/mL (3 Clinics subcutaneou subcutaneou mL) s pen s pen subcutaneo INJECT 20 INJECT 20 us pen UNITS EVERY UNITS EVERY INJECT 20 DAY BY DAY BY UNITS SUBCUTANEOU SUBCUTANEOU EVERY DAY S ROUTE IN S ROUTE IN BY THE EVENING THE EVENING SUBCUTANEO FOR 90 FOR 90 US ROUTE DAYS. DAYS. IN THE EVENING FOR 90 DAYS. naproxen naproxen No naproxen Swe miguelina 500 mg 500 mg 500 mg [facility] tablet Take tablet Take tablet ty 1 tablet 1 tablet Take 1 Hospi ta twice a day twice a day tablet l by oral by oral twice a Clinic s route with route with day by meals for 7 meals for 7 oral route days. days. with meals for 7 days. OneTouch OneTouch No OneTouch Swe miguelina [facility] Plus Delica Plus [facility] Lancet 33 Lancet 33 Plus ty gauge gauge Lancet 33 [facility] gauge Clinics OneTouch OneTouch No OneTouch Swe miguelina Verio test Verio test Verio test [facility] strips strips strips ty [facility] oxymetazoli oxymetazoli No 2spray( BID oxymetazol [place] ne 0.05 % ne 0.05 % s) ine 0.05 % Communi nasal spray nasal spray nasal ty [facility] 2 [facility] 2 spray Hospita sprays sprays [place] 2 l twice a day twice a day sprays Clinics by by twice a intranasal intranasal day by route as route as intranasal needed. needed. route as needed. prednisone prednisone No 1 BID prednisone [place] 20 mg 20 mg 20 mg [facility] tablet Take tablet Take tablet ty 1 tablet 1 tablet Take 1 Hospi ta twice a day twice a day tablet l by oral by oral twice a Clinic s route for 5 route for 5 day by days. days. oral route for 5 days. Zithromax Zithromax No Zithromax [facility] Z-Jaydon 250 Z-Jaydon 250 Z-Jaydon 250 Communi mg tablet mg tablet mg tablet ty TAKE 2 TAKE 2 TAKE 2 Hospita TABLETS TABLETS TABLETS l (500 MG) BY (500 MG) BY (500 MG) Clinics ORAL ROUTE ORAL ROUTE BY ORAL ONCE DAILY ONCE DAILY ROUTE ONCE FOR 1 DAY FOR 1 DAY DAILY FOR THEN 1 THEN 1 1 DAY THEN TABLET (250 TABLET (250 1 TABLET MG) BY ORAL MG) BY ORAL (250 MG) ROUTE ONCE ROUTE ONCE BY ORAL DAILY FOR 4 DAILY FOR 4 ROUTE ONCE DAYS DAYS DAILY FOR 4 DAYS amlodipine amlodipine No amlodipine [facility] 10 mg 10 mg 10 mg [facility]i tablet TAKE tablet TAKE tablet ty 1 TABLET BY 1 TABLET BY TAKE 1 Hospita MOUTH EVERY MOUTH EVERY TABLET BY l DAY DAY MOUTH Clinics EVERY DAY Asprin Ec Asprin Ec No 1 Q1D Asprin Ec [facility] Low Dose 81 Low Dose 81 Low Dose [facility] mg mg 81 mg ty tablet,nini tablet,nini tablet,del Hospita yed release yed release ayed l Take 1 Take 1 release Clinics tablet tablet Take 1 every day every day tablet by oral by oral every day route. route. by oral route. atorvastati atorvastati No atorvastat [facility] n 40 mg n 40 mg in 40 mg Commu ni tablet TAKE tablet TAKE tablet ty 1 TABLET BY 1 TABLET BY TAKE 1 Hospita MOUTH EVERY MOUTH EVERY TABLET BY l DAY DAY MOUTH Clinics EVERY DAY azithromyci azithromyci No azithromyc [facility] n 250 mg n 250 mg in 250 mg Co [facility] tablet TAKE tablet TAKE tablet ty 2 TABLETS 2 TABLETS TAKE 2 Hos betty (500 MG) BY (500 MG) BY TABLETS l ORAL ROUTE ORAL ROUTE (500 MG) Clinics ONCE DAILY ONCE DAILY BY ORAL FOR 1 DAY FOR 1 DAY ROUTE ONCE THEN 1 THEN 1 DAILY FOR TABLET (250 TABLET (250 1 DAY THEN MG) BY ORAL MG) BY ORAL 1 TABLET ROUTE ONCE ROUTE ONCE (250 MG) DAILY FOR 4 DAILY FOR 4 BY ORAL DAYS DAYS ROUTE ONCE DAILY FOR 4 DAYS atorvastati atorvastati No atorvastat [place] n 40 mg n 40 mg in 40 mg da tablet tablet tablet Medical Group BD Veronica 2nd BD Veronica 2nd No BD Veronica [facility] [place] Gen Pen Gen Pen 2nd Gen Commun i Needle 32 Needle 32 Pen Needle ty gauge x gauge x 32 gauge x Hos betty 5/32" USE 5/32" USE 5/32" USE l Clinics DIRECTED. DIRECTED. DIRECTED. capsaicin capsaicin No 1applic TID capsaicin [facility] [place] 0.1 % 0.1 % ation(s 0.1 % Communi topical topical ) topical ty cream Apply cream Apply cream Hospita 1 1 Apply 1 l application application applicatio Clinics 3 times a 3 times a n 3 times day by day by a day by topical topical topical route as route as route as needed for needed for needed for 30 days. 30 days. 30 days. diazepam 5 diazepam 5 No 1 TID diazepam 5 [facility] [place] mg tablet mg tablet mg tablet [facility] Take 1 Take 1 Take 1 ty tablet 3 tablet 3 tablet 3 Hos betty times a day times a day times a l by oral by oral day by Clinics route as route as oral route needed for needed for as needed 15 days. 15 days. for 15 days. diflupredna diflupredna No diflupredn [facility] te 0.05 % te 0.05 % ate 0.05 % Communi eye drops eye drops eye drops ty Hospita l Clinics FreeStyle FreeStyle No FreeStyle [facility] [place] Tameka 14 Tameka 14 Tameka 14 Com jesusita Day [place] Day [place] Day [place] ty Use as Use as Use as Hospita directed directed directed l every 14 every 14 every 14 Cli nics days days days FreeStyle FreeStyle No FreeStyle [facility] [place] 14 Tameka 14 [place] 14 Com jesusita Day Sensor Day Sensor Day Sensor ty kit Use as kit Use as kit Use as Hospita directed directed directed l Clinics Lantus Lantus No 20unit( Q1D Lantus [facility] [place] Solostar Solostar s) Solostar Com jesusita U-100 U-100 U-100 ty Insulin 100 Insulin 100 Insulin Hospita unit/mL (3 unit/mL (3 100 l mL) mL) unit/mL (3 Clinics subcutaneou subcutaneou mL) s pen s pen subcutaneo Inject 20 Inject 20 us pen units every units every Inject 20 day by day by units subcutaneou subcutaneou every day s route in s route in by the evening the evening subcutaneo for 90 for 90 us route days. days. in the evening for 90 days. naproxen naproxen No naproxen Swe miguelina 500 mg 500 mg 500 mg [facility] tablet Take tablet Take tablet ty 1 tablet 1 tablet Take 1 Hospi ta twice a day twice a day tablet l by oral by oral twice a Clinic s route with route with day by meals for 7 meals for 7 oral route days. days. with meals for 7 days. Nasal [place] Nasal [place] No Nasal [facility] (oxymetazol (oxymetazol [place] Communi ine) 0.05 % ine) 0.05 % (oxymetazo ty [place] 2 Halsey 2 line) 0.05 Hos betty sprays sprays % [place] 2 l twice a day twice a day sprays Clinics by by twice a intranasal intranasal day by route as route as intranasal needed. needed. route as needed. OneTouch OneTouch No OneTouch Swe miguelina Delica Plus Delica Plus Delica [facility] Lancet 33 Lancet 33 Plus ty gauge gauge Lancet 33 [facility]ospita gauge l Clinics diazepam 5 diazepam 5 No diazepam 5 [place] mg tablet mg tablet mg tablet da Medical Group OneTouch OneTouch No OneTouch Swe miguelina Verio test Verio test Verio test Communi strips strips strips ty Hospita l Clinics prednisone prednisone No prednisone [place] 20 mg 20 mg 20 mg [facility] tablet Take tablet Take tablet ty 1 tablet 1 tablet Take 1 Hospi ta twice a day twice a day tablet l by oral by oral twice a Clinic s route for 5 route for 5 day by days. days. oral route for 5 days. Semglee Semglee No Semglee [facility] (insulin (insulin (insulin Com jesusita glargine-yf glargine-yf glargine-y ty gn) Pen 100 gn) Pen 100 fgn) Pen [facility]osp[facility] unit/mL (3 unit/mL (3 100 l mL) mL) unit/mL (3 Clinics subcutaneou subcutaneou mL) s s subcutaneo us Vitamin D3 Vitamin D3 No 1capsul Q1D Vitamin D3 [facility] [place] 50 mcg 50 mcg e(s) 50 mcg Communi (2,000 (2,000 (2,000 ty unit) unit) unit) Hospita capsule capsule capsule l Take 1 Take 1 Take 1 Clinics capsule capsule capsule every day every day every day by oral by oral by oral route for route for route for 90 days. 90 days. 90 days. Asprin Ec Asprin Ec No 1 Q1D Asprin Ec [facility] Low Dose 81 Low Dose 81 Low Dose [facility] mg mg 81 mg ty tablet,nini tablet,nini tablet,del Hospita yed release yed release ayed l Take 1 Take 1 release Clinics tablet tablet Take 1 every day every day tablet by oral by oral every day route. route. by oral route. Bactrim DS Bactrim DS No 1 Q12H Bactrim DS [facility] 800 mg-160 800 mg-160 800 mg-160 Communi mg tablet mg tablet mg tablet ty Take 1 Take 1 Take 1 Hospita tablet tablet tablet l every 12 every 12 every 12 Cli nics hours by hours by hours by oral route oral route oral route for 5 days. for 5 days. for 5 days. BD Veronica 2nd BD Veronica 2nd No BD Veronica [facility] [place] Gen Pen Gen Pen 2nd Gen Commun i Needle 32 Needle 32 Pen Needle ty gauge x gauge x 32 gauge x Hos betty " USE " USE " USE l Clinics DIRECTED. DIRECTED. DIRECTED. Besivance Besivance No Besivance [facility] 0.6 % eye 0.6 % eye 0.6 % eye Communi drops,suspe drops,suspe drops,susp ty nsion nsion ension Hospita INSTILL 1 INSTILL 1 INSTILL 1 l DROP INTO DROP INTO DROP INTO Clinics LEFT EYE LEFT EYE LEFT EYE TWICE A DAY TWICE A DAY TWICE A DAY diflupredna diflupredna No diflupredn [facility] te 0.05 % te 0.05 % ate 0.05 % Communi eye drops eye drops eye drops ty Hospita l Clinics gentamicin gentamicin No gentamicin [facility] 0.3 % eye 0.3 % eye 0.3 % eye Communi drops drops drops ty INSTILL 1 INSTILL 1 INSTILL 1 Hospita DROP INTO DROP INTO DROP INTO l LEFT EYE 4 LEFT EYE 4 LEFT EYE 4 Clinics TIMES A DAY TIMES A DAY TIMES A DAY Lantus Lantus No Lantus [place] Solostar Solostar Solostar da U-100 U-100 U-100 Medical Insulin 100 Insulin 100 Insulin Group unit/mL (3 unit/mL (3 100 mL) mL) unit/mL (3 subcutaneou subcutaneou mL) s pen s pen subcutaneo us pen ketorolac ketorolac No ketorolac [facility] [place] 0.5 % eye 0.5 % eye 0.5 % eye Communi drops drops drops ty INSTILL ONE INSTILL ONE INSTILL Hospita DROP INTO DROP INTO ONE DROP l LEFT EYE 4 LEFT EYE 4 INTO LEFT Clinics TIMES A DAY TIMES A DAY EYE 4 TIMES A DAY Lantus Lantus No Lantus [facility] Solostar Solostar Solostar Com jesusita U-100 U-100 U-100 ty Insulin 100 Insulin 100 Insulin [facility]ospita unit/mL (3 unit/mL (3 100 l mL) mL) unit/mL (3 Clinics subcutaneou subcutaneou mL) s pen s pen subcutaneo INJECT 10 INJECT 10 us pen UNITS EVERY UNITS EVERY INJECT 10 DAY BY DAY BY UNITS SUBCUTANEOU SUBCUTANEOU EVERY DAY S ROUTE IN S ROUTE IN BY THE EVENING THE EVENING SUBCUTANEO FOR 30 FOR 30 US ROUTE DAYS. DAYS. IN THE EVENING FOR 30 DAYS. OneTouch OneTouch No OneTouch Swe miguelina Delica Plus Delica Plus [facility] Lancet 33 Lancet 33 Plus ty gauge gauge Lancet 33 Hospita gauge Clinics OneTouch OneTouch No OneTouch Swe miguelina Verio test Verio test Verio test [facility] strips [facility]on prednisolon No prednisolo [facility] e acetate 1 e acetate 1 ne acetate Communi % eye % eye 1 % eye ty drops,suspe drops,suspe drops,susp Hospita nsion nsion ension l INSTILL 1 INSTILL 1 INSTILL 1 Clinics DROP INTO DROP INTO DROP INTO LEFT EYE 4 LEFT EYE 4 LEFT EYE 4 TIMES A DAY TIMES A DAY TIMES A DAY acyclovir acyclovir No 1 Q8H acyclovir [place] 400 mg 400 mg 400 mg Communi tablet Take tablet Take tablet ty 1 tablet 1 tablet Take 1 Hospi ta every 8 every 8 tablet l hours by hours by every 8 Clin ics oral route oral route hours by for 7 days. for 7 days. oral route for 7 days. alogliptin alogliptin No 1 BID alogliptin [facility] 12.5 12.5 12.5 Communi mg-metformi mg-metformi mg-metform ty n 500 mg n 500 mg in 500 mg Ho spita tablet Take tablet Take tablet l 1 tablet 1 tablet Take 1 Clini cs twice a day twice a day tablet by oral by oral twice a route. route. day by oral route. amitriptyli amitriptyli No 1 Q1D amitriptyl [facility] ne 25 mg ne 25 mg ine 25 mg Co [facility] tablet Take tablet Take tablet ty 1 tablet 1 tablet Take 1 Hospi ta every day every day tablet l by oral by oral every day Clin ics route at route at by oral bedtime. bedtime. route at bedtime. amlodipine amlodipine No 1 Q1D amlodipine [place] 10 10 10 Communi mg-atorvast mg-atorvast mg-atorvas ty atin 40 mg atin 40 mg tatin 40 Hospita tablet Take tablet Take mg tablet l 1 tablet 1 tablet Take 1 Clini cs every day every day tablet by oral by oral every day route at route at by oral bedtime. bedtime. route at bedtime. Asprin Ec Asprin Ec No 1 Q1D Asprin Ec [facility] Low Dose 81 Low Dose 81 Low Dose [facility] mg mg 81 mg ty tablet,nini tablet,nini tablet,del Hospita yed release yed release ayed l Take 1 Take 1 release Clinics tablet tablet Take 1 every day every day tablet by oral by oral every day route. route. by oral route. Adult Low Adult Low No 1 Q1D Adult Low [place] Dose Dose Dose da Aspirin 81 Aspirin 81 Aspirin 81 Medical mg mg mg Group tablet,nini tablet,nini tablet,del yed release yed release ayed Take 1 Take 1 release tablet tablet Take 1 every day every day tablet by oral by oral every day route. route. by oral route. glipizide glipizide No 1 Q1D glipizide [facility] 10 mg 10 mg 10 mg Communi tablet Take tablet Take tablet ty 1 tablet 1 tablet Take 1 Hospi ta every day every day tablet l by oral by oral every day Clin ics route in route in by oral the the route in morning. morning. the morning. hydrochloro hydrochloro No 1 Q1D hydrochlor [facility] thiazide 25 thiazide 25 othiazide Commun[facility] mg tablet mg tablet 25 mg ty Take 1 Take 1 tablet Hospita tablet tablet Take 1 l every day every day tablet Cli nics by oral by oral every day route in route in by oral the the route in morning. morning. the morning. atorvastati atorvastati No atorvastat [place] n 40 mg n 40 mg in 40 mg da tablet tablet tablet Medical Group diazepam 5 diazepam 5 No diazepam 5 [place] mg tablet mg tablet mg tablet da Medical Group Lantus Lantus No Lantus [place] Solostar Solostar Solostar da U-100 U-100 U-100 Medical Insulin 100 Insulin 100 Insulin Group unit/mL (3 unit/mL (3 100 mL) mL) unit/mL (3 subcutaneou subcutaneou mL) s pen s pen subcutaneo us pen Adult Low Adult Low No 1 Q1D Adult Low [place] Dose Dose Dose da Aspirin 81 Aspirin 81 Aspirin 81 Medical mg mg mg Group tablet,nini tablet,nini tablet,del yed release yed release ayed Take 1 Take 1 release tablet tablet Take 1 every day every day tablet by oral by oral every day route. route. by oral route. atorvastati atorvastati No 1 Q1D atorvastat [place] n 40 mg n 40 mg in 40 mg da tablet Take tablet Take tablet Medical 1 tablet 1 tablet Take 1 Group every day every day tablet by oral by oral every day route for route for by oral 90 days. 90 days. route for 90 days. diazepam 5 diazepam 5 No 1 Q1D diazepam 5 [place] mg tablet mg tablet mg tablet da Take 1 Take 1 Take 1 Medical tablet tablet tablet Group every day every day every day by oral by oral by oral route for route for route for 30 days. 30 days. 30 days. Lantus Lantus No Lantus [place] [facility]ar Solostar Solostar da U-100 U-100 U-100 Medical Insulin 100 Insulin 100 Insulin Group unit/mL (3 unit/mL (3 100 mL) mL) unit/mL (3 subcutaneou subcutaneou mL) s pen s pen subcutaneo us pen Adult Low Adult Low No 1 Q1D Adult Low [place] Dose Dose Dose da Aspirin 81 Aspirin 81 Aspirin 81 Medical mg mg mg Group tablet,nini tablet,nini tablet,del yed release yed release ayed Take 1 Take 1 release tablet tablet Take 1 every day every day tablet by oral by oral every day route. route. by oral route. amlodipine amlodipine No amlodipine [place] 10 mg 10 mg 10 mg da tablet TAKE tablet TAKE tablet Medical 1 TABLET BY 1 TABLET BY TAKE 1 Group MOUTH EVERY MOUTH EVERY TABLET BY DAY DAY MOUTH EVERY DAY atorvastati atorvastati No atorvastat [place] n 40 mg n 40 mg in 40 mg da tablet TAKE tablet TAKE tablet Medical 1 TABLET BY 1 TABLET BY TAKE 1 Group MOUTH EVERY MOUTH EVERY TABLET BY DAY DAY MOUTH EVERY DAY BD Veronica 2nd BD Veronica 2nd No BD Veronica [place] Gen Pen Gen Pen 2nd Gen da Needle 32 Needle 32 Pen Needle Medical gauge x gauge x 32 gauge x [place] up " USE " USE " USE DIRECTED. DIRECTED. DIRECTED. diazepam 5 diazepam 5 No diazepam 5 [place] mg tablet mg tablet mg tablet da Take 1 Take 1 Take 1 Medical tablet tablet tablet Group every day every day every day by oral by oral by oral route for route for route for 30 days. 30 days. 30 days. Lantus Lantus No Lantus [place] [facility]ar Solostar Solostar da U-100 U-100 U-100 Medical Insulin 100 Insulin 100 Insulin Group unit/mL (3 unit/mL (3 100 mL) mL) unit/mL (3 subcutaneou subcutaneou mL) s pen s pen subcutaneo us pen Semglee Semglee No Semglee [place] (insulin (insulin (insulin da glargine-yf glargine-yf glargine-y Medical gn) Pen 100 gn) Pen 100 fgn) Pen Group unit/mL (3 unit/mL (3 100 mL) mL) unit/mL (3 subcutaneou subcutaneou mL) s INJECT 20 s INJECT 20 subcutaneo UNITS EVERY UNITS EVERY us INJECT DAY BY DAY BY 20 UNITS SUBCUTANEOU SUBCUTANEOU EVERY DAY S ROUTE IN S ROUTE IN BY THE EVENING THE EVENING SUBCUTANEO FOR 90 FOR 90 US ROUTE DAYS. DAYS. IN THE EVENING FOR 90 DAYS. Adult Low Adult Low No 1 Q1D Adult Low [place] Dose Dose Dose da Aspirin 81 Aspirin 81 Aspirin 81 Medical mg mg mg Group tablet,nini tablet,nini tablet,del yed release yed release ayed Take 1 Take 1 release tablet tablet Take 1 every day every day tablet by oral by oral every day route. route. by oral route. Immunizations Ordered Immunization Filled Immunization Date Status Commen ts Source Name Name influenza, influenza, 2022-03-27 Completed [place] unspecified unspecified 00:00:00 [facility] formulation formulation influenza, influenza, 2022-03-27 Completed [place] unspecified unspecified 00:00:00 [facility] formulation formulation influenza, influenza, 2022-03-27 Completed [place] unspecified unspecified 00:00:00 [facility] formulation formulation influenza, influenza, 2022-03-27 Completed [place] unspecified unspecified 00:00:00 Medical Gr[facility] p formulation formulation SARS-COV-2 SARS-COV-2 2020-08-12 Completed [facility] (COVID-19) vaccine, (COVID-19) vaccine, 00:00:00 [facility] UNSPECIFIED UNSPECIFIED SARS-COV-2 SARS-COV-2 2020-08-12 Completed [facility] ty (COVID-19) vaccine, (COVID-19) vaccine, 00:00:00 Hospital Clinics UNSPECIFIED UNSPECIFIED SARS-COV-2 SARS-COV-2 2020-08-12 Completed [facility] ty (COVID-19) vaccine, (COVID-19) vaccine, 00:00:00 Hospital Clinics UNSPECIFIED UNSPECIFIED SARS-COV-2 SARS-COV-2 2020-08-12 Completed [facility] ty (COVID-19) vaccine, (COVID-19) vaccine, 00:00:00 Hospital Clinics UNSPECIFIED UNSPECIFIED SARS-COV-2 SARS-COV-2 2020-08-12 Completed [facility] ty (COVID-19) vaccine, (COVID-19) vaccine, 00:00:00 Hospital Clinics UNSPECIFIED UNSPECIFIED SARS-COV-2 SARS-COV-2 2020-08-12 Completed [facility] ty (COVID-19) vaccine, (COVID-19) vaccine, 00:00:00 Hospital Clinics UNSPECIFIED UNSPECIFIED COVID-19 COVID-19 2020-08-12 Completed [facility] ty (SARS-COV-2) (SARS-COV-2) 00:00:00 [facility] linics vaccine, unspecified vaccine, unspecified COVID-19 COVID-19 2020-08-12 Completed [place] [facility] ty (SARS-COV-2) (SARS-COV-2) 00:00:00 [facility] linics vaccine, unspecified vaccine, unspecified COVID-19 COVID-19 2020-08-12 Completed [place] [facility] ty (SARS-COV-2) (SARS-COV-2) 00:00:00 [facility] vaccine, unspecified vaccine, unspecified COVID-19 COVID-19 2020-08-12 Completed [place] [facility] ty (SARS-COV-2) (SARS-COV-2) 00:00:00 [facility] vaccine, unspecified vaccine, unspecified COVID-19 COVID-19 2020-08-12 Completed [place] [facility] ty (SARS-COV-2) (SARS-COV-2) 00:00:00 [facility] vaccine, unspecified vaccine, unspecified COVID-19 COVID-19 2020-08-12 Completed [place] [facility] ty (SARS-COV-2) (SARS-COV-2) 00:00:00 [facility] vaccine, unspecified vaccine, unspecified COVID-19 COVID-19 2020-08-12 Completed [place] [facility] ty (SARS-COV-2) (SARS-COV-2) 00:00:00 [facility] vaccine, unspecified vaccine, unspecified COVID-19 COVID-19 2020-08-12 Completed [place] [facility] ty (SARS-COV-2) (SARS-COV-2) 00:00:00 [facility] vaccine, unspecified vaccine, unspecified COVID-19 COVID-19 2020-08-12 Completed [facility] ty (SARS-COV-2) (SARS-COV-2) 00:00:00 [facility] vaccine, unspecified vaccine, unspecified COVID-19 COVID-19 2020-08-12 Completed [place] [facility] ty (SARS-COV-2) (SARS-COV-2) 00:00:00 [facility] vaccine, unspecified vaccine, unspecified SARS-COV-2 SARS-COV-2 2020-08-12 Completed [facility] ty (COVID-19) vaccine, (COVID-19) vaccine, 00:00:00 [facility] UNSPECIFIED UNSPECIFIED Vital Signs Vital Name Observation Time Observation Value Comments Source BP Diastolic 2022-09-19 00:00:00 78 [facility] Height 2022-09-19 00:00:00 63.5 [in_i] [facility] BMI (Body Mass 2022-09-19 00:00:00 24.4 kg/m2 [facility] Index) Group BP Systolic 2022-09-19 00:00:00 132 mm[Hg] [facility] Body Weight 2022-09-19 00:00:00 139.7 [lb_av] [facility] BP Diastolic 2022-08-23 00:00:00 72 mm[Hg] [facility] s Height 2022-08-23 00:00:00 62 [in_i] [facility] s BMI (Body Mass 2022-08-23 00:00:00 26.5 kg/m2 [facility] Index) Hospital Clinic s BP Systolic 2022-08-23 00:00:00 147 mm[Hg] [facility] s Body Weight 2022-08-23 00:00:00 2320 [oz_av] [facility] s BP Diastolic 2022-08-22 00:00:00 81 mm[Hg] [facility] Height 2022-08-22 00:00:00 63.5 [in_i] [facility] BMI (Body Mass 2022-08-22 00:00:00 25.5 kg/m2 [facility] Medical Index) Group BP Systolic 2022-08-22 00:00:00 130 mm[Hg] [facility] Body Weight 2022-08-22 00:00:00 146.2 [lb_av] [facility] BP Diastolic 2022-08-09 00:00:00 71 mm[Hg] [facility] Height 2022-08-09 00:00:00 63.5 [in_i] [facility] BMI (Body Mass 2022-08-09 00:00:00 25.6 kg/m2 [facility] Medical Index) Group BP Systolic 2022-08-09 00:00:00 143 mm[Hg] [facility] Body Weight 2022-08-09 00:00:00 146.6 [lb_av] [facility] BP Diastolic 2022-07-05 00:00:00 84 mm[Hg] [facility] Height 2022-07-05 00:00:00 63.5 [in_i] [facility] BMI (Body Mass 2022-07-05 00:00:00 24.6 kg/m2 [facility] Medical Index) Group BP Systolic 2022-07-05 00:00:00 128 mm[Hg] [facility] Body Weight 2022-07-05 00:00:00 141.3 [lb_av] [facility] Height 2022-06-12 00:00:00 62 [in_i] [facility] s BP Diastolic 2022-05-29 00:00:00 71 mm[Hg] [facility] s Height 2022-05-29 00:00:00 62 [in_i] [facility] s BMI (Body Mass 2022-05-29 00:00:00 26 kg/m2 [facility]) Hospital Clinic s BP Systolic 2022-05-29 00:00:00 119 mm[Hg] [facility] s Body Weight 2022-05-29 00:00:00 2274.4 [oz_av] [facility] s Height 2022-05-09 00:00:00 62 [in_i] [facility] s BP Diastolic 2022-04-05 00:00:00 72 mm[Hg] [facility] s Height 2022-04-05 00:00:00 62 [in_i] [facility] s BMI (Body Mass 2022-04-05 00:00:00 25.6 kg/m2 [facility]) [facility] Clinic s BP Systolic 2022-04-05 00:00:00 96 mm[Hg] [facility] s Body Weight 2022-04-05 00:00:00 2240 [oz_av] [facility] s BP Diastolic 2022-03-29 00:00:00 78 mm[Hg] [facility] s Height 2022-03-29 00:00:00 62 [in_i] [facility] s BMI (Body Mass 2022-03-29 00:00:00 25.4 kg/m2 [facility]) [facility] Clinic s BP Systolic 2022-03-29 00:00:00 129 mm[Hg] [facility] s Body Weight 2022-03-29 00:00:00 2224 [oz_av] [facility] s BP Diastolic 2022-02-15 00:00:00 72 mm[Hg] [facility] s Height 2022-02-15 00:00:00 62 [in_i] [facility] s BMI (Body Mass 2022-02-15 00:00:00 26.3 kg/m2 [facility]) Hospital Clinic s BP Systolic 2022-02-15 00:00:00 125 mm[Hg] [facility] s Body Weight 2022-02-15 00:00:00 2304 [oz_av] [facility] s BP Diastolic 2021-12-27 00:00:00 67 mm[Hg] [facility] [facility] s Height 2021-12-27 00:00:00 62 [in_i] [facility] s BMI (Body Mass 2021-12-27 00:00:00 26.3 kg/m2 [facility]) [facility] s BP Systolic 2021-12-27 00:00:00 103 mm[Hg] [facility] s Body Weight 2021-12-27 00:00:00 2304 [oz_av] [facility] s BP Diastolic 2021-12-07 00:00:00 64 mm[Hg] [facility] s Height 2021-12-07 00:00:00 62 [in_i] [facility] s BMI (Body Mass 2021-12-07 00:00:00 26.5 kg/m2 [facility] s BP Systolic 2021-12-07 00:00:00 110 mm[Hg] [facility] s Body Weight 2021-12-07 00:00:00 2320 [oz_av] [facility] s BP Diastolic 2021-11-03 00:00:00 85 mm[Hg] [facility] s Height 2021-11-03 00:00:00 62 [in_i] [facility] s BMI (Body Mass 2021-11-03 00:00:00 27.3 kg/m2 [facility]) [facility] s BP Systolic 2021-11-03 00:00:00 160 mm[Hg] [facility] s Body Weight 2021-11-03 00:00:00 2385.6 [oz_av] [facility] s BP Diastolic 2021-02-28 00:00:00 88 mm[Hg] [facility] s Height 2021-02-28 00:00:00 62 [in_i] [facility] s BMI (Body Mass 2021-02-28 00:00:00 28.7 kg/m2 [facility] s BP Systolic 2021-02-28 00:00:00 166 mm[Hg] [facility] s Body Weight 2021-02-28 00:00:00 2512 [oz_av] [facility] s BP Diastolic 2020-12-28 00:00:00 76 mm[Hg] [facility] s Height 2020-12-28 00:00:00 62 [in_i] [facility] s BMI (Body Mass 2020-12-28 00:00:00 30 kg/m2 [facility] s BP Systolic 2020-12-28 00:00:00 129 mm[Hg] [facility] s Body Weight 2020-12-28 00:00:00 2624 [oz_av] [facility] s BP Systolic 2020-08-16 00:00:00 117 mm[Hg] [facility] s Body Weight 2020-08-16 00:00:00 2608 [oz_av] [facility] s BP Diastolic 2020-08-16 00:00:00 59 mm[Hg] [facility] s Height 2020-08-16 00:00:00 62 [in_i] [facility] s BMI (Body Mass 2020-08-16 00:00:00 29.8 kg/m2 [facility] s Procedures Procedure Date / Time Performed Performing Clinician Sourc e unlisted imaging order 2022-07-05 00:00:00 [facility] XR, cervical spine, 2 2022-03-29 00:00:00 [facility] or 3 view [facility] LDCT, chest, for lung 2022-03-29 00:00:00 [facility] cancer screening [facility] s Back Surgery 2002-05-27 00:00:00 [facility] Procedure on Back [facility] Ligation of Bilateral [facility] Plan of Care Planned Activity Planned Date Details Comments Source Diagnostic Test 2022-08-23 HbA1c (hemoglobin [facility] Pending 00:00:00 A1c), blood [code [facility] = HbA1c (hemoglobin A1c), blood] Diagnostic Test 2022-08-23 CMP, serum or [facility] [place] [facility] Pending 00:00:00 plasma [code = Hospital Clin ics CMP, serum or plasma] Diagnostic Test 2022-08-23 CBC w/ diff [code [facility] Pending 00:00:00 = CBC w/ diff] Hospital Clin ics Diagnostic Test 2022-08-23 TSH + free T4, [place] [facility] Pending 00:00:00 serum [code = TSH [facility] + free T4, serum] Diagnostic Test 2022-08-23 vitamin D, [facility] Pending 00:00:00 25-hydroxy, total, [facility] serum [code = vitamin D, 25-hydroxy, total, serum] Diagnostic Test 2022-08-09 cytology, fna, [facility] Pending 00:00:00 thyroid [code = Group cytology, fna, thyroid] Future Appointment 2023-03-21 [facility] 11:00:00 [facility]; Group [address], [place] [address] Encounters Start End Encounter Admission Attending Care Care Encounter Source Date/Time Date/Time Type Type Clinicians Facility Department ID 2022-09-19 2022-09-19 KYLEE Decker [place] - [id number] [place] 00:00:00 00:00:00 : Bartolome [facility], Network Group [address], [facility], Otolaryngol [facility] [address] , Ph. 2022-08-23 2022-08-23 [facility] [place] 30 [place] 00:00:00 00:00:00 Aleksandar Jones MSN, STAMPS OR COINS SALESPERSON, [facility] BUILDING CONSTRUCTION INSPECTOR-C: [address] [place] [facility], Clinic s [address], [facility] [address], [place], [place] MSN, [facility] [address] , Ph. 2022-08-22 2022-08-22 [facility] [id number] [place] 00:00:00 00:00:00 0329 Medical Group 2022-08-22 2022-08-22 Outpatient Yan_W [facility] [id number] [place] 00:00:00 00:00:00 0330 Medical Group 2022-08-22 2022-08-22 [facility]patient [facility] [id number] [place] 00:00:00 00:00:00 0425 Medical Group 2022-08-22 2022-08-22 [facility] [id number] [place] 00:00:00 00:00:00 0426 Medical Group 2022-08-22 2022-08-22 Carlin Laureano [facility] [place] - [id number] [place] 00:00:00 00:00:00 : Bartolome Gudino [facility], Network Group [address], [facility], Otolaryngol [facility] [address] , Ph. 2022-08-21 2022-08-21 Outpatient [facility] [id number] [place] 00:00:00 00:00:00 328 [facility] 2022-08-21 2022-08-21 Outpatient [facility] [id number] [place] 00:00:00 00:00:00 330 [facility] 2022-08-09 2022-08-09 Outpatient Carlin Salgado [facility] D000 [id number] [place] 15:48:00 15:48:00 -[id number] [facility] 2022-08-09 2022-08-09 Carlin [facility]ureano [facility] [place] - [id number] [place] 00:00:00 00:00:00 : Bartolome [facility], Network Group [address], [facility], Otolaryngol [place] [address] , Ph. 2022-07-13 2022-07-13 Outpatient JACOBO Carlin Laureano [facility] D000 [id number] [place] 11:03:00 11:03:00 -[id number] [facility] 2022-07-05 2022-07-05 Outpatient Yan_W KYLEE POLO [id number] [place] 00:00:00 00:00:00 0316 [facility] 2022-07-05 2022-07-05 Outpatient Yan_W [facility] [id number] [place] 00:00:00 00:00:00 0317 [facility] 2022-07-05 2022-07-05 [place] [id number] [place] 00:00:00 00:00:00 0328 [facility] 2022-07-05 2022-07-05 Outpatient Yan_W MMG [facility] [id number] [place] 00:00:00 00:00:00 0209 [facility] 2022-07-05 2022-07-05 Carlin Laureano [facility] [place] - [id number] [place] 00:00:00 00:00:00 : Bartolome [facility], Network Group [address], [facility], [place]olaryngol [place] [address] , Ph. 2022-07-04 2022-07-04 Outpatient Yan_W [facility] [id number] [place] 00:00:00 00:00:00 0208 [facility] 2022-06-19 2022-06-19 [place] [id number] [place] 00:00:00 00:00:00 0124 [facility] 2022-06-12 2022-06-12 [facility] [place] [id number] [place] 00:00:00 00:00:00 Karen, [facility] uni MSN, STAMPS OR COINS SALESPERSON, Hospital - ty BUILDING CONSTRUCTION INSPECTOR-C: [address] [place] [facility], [facility] s [address], [facility] [address], [place] MSN, BUILDING CONSTRUCTION INSPECTOR-C [id number] , Ph. 2022-06-08 2022-06-08 Outpatient Yan_W MMG [facility] [id number] [place] 00:00:00 00:00:00 0113 [facility] 2022-05-29 2022-05-29 Outpatient [facility] [id number] [place] 00:00:00 00:00:00 103 [facility] 2022-05-29 2022-05-29 Outpatient [facility] [id number] [place] 00:00:00 00:00:00 117 [facility] 2022-05-29 2022-05-29 [facility] [place] [id number] [place] 00:00:00 00:00:00 Karen, [facility] MSN, STAMPS OR COINS SALESPERSON, Hospital - ty BUILDING CONSTRUCTION INSPECTOR-C: [address] [place] [facility], [facility] s [address], [facility] [address], [place] MSN, BUILDING CONSTRUCTION INSPECTOR-C [id number] , Ph. 2022-05-09 2022-05-09 Outpatient [facility] [id number] [place] 00:00:00 00:00:00 214 [facility] 2022-05-09 2022-05-09 [facility] [place] [id number] [place] 00:00:00 00:00:00 Karen [facility] uni MSN, STAMPS OR COINS SALESPERSON, Hospital - ty BUILDING CONSTRUCTION INSPECTOR-C: [address] [place] [facility] N. [facility], Clinic s [address], [address] [address], [place], [place] MSN, BUILDING CONSTRUCTION INSPECTOR-C [id number] , Ph. 2022-04-05 2022-04-05 Outpatient [facility] [id number] [place] 00:00:00 00:00:00 110 [facility] 2022-04-05 2022-04-05 [facility] [place] [id number] [place] 00:00:00 00:00:00 Karen, [facility] MSN, STAMPS OR COINS SALESPERSON, Hospital - ty BUILDING CONSTRUCTION INSPECTOR-C: [address] [place] [facility] [address], [facility] [address], [place], [place] MSN, BUILDING CONSTRUCTION INSPECTOR-C [id number] , Ph. 2022-03-29 2022-03-29 Outpatient [facility] [id number] [place] 00:00:00 00:00:00 103 [facility] 2022-03-29 2022-03-29 [facility] [place] [id number] [place] 00:00:00 00:00:00 Aleksandar [facility] Comm uni MSN, STAMPS OR COINS SALESPERSON, Hospital - ty BUILDING CONSTRUCTION INSPECTOR-C: [address] [place] [facility], [facility] s [address], [facility] [address], [place], [place] MSN, BUILDING CONSTRUCTION INSPECTOR-C [id number] , Ph. 2022-03-13 2022-03-13 Outpatient [facility] [id number] [place] 00:00:00 00:00:00 018 [facility] 2022-02-15 2022-02-15 Outpatient [facility] [id number] [place] 00:00:00 00:00:00 922 [facility] 2022-02-15 2022-02-15 [facility] [place] 00:00:00 00:00:00 Karen, [facility] MSN, STAMPS OR COINS SALESPERSON, Hospital - ty BUILDING CONSTRUCTION INSPECTOR-C: [address] [place] [facility] N. [facility], Clinic s [address], [facility] [address], [place], [place] MSN, BUILDING CONSTRUCTION INSPECTOR-C [id number] , Ph. 2021-12-27 2021-12-27 Outpatient [facility] [id number] [place] 00:00:00 00:00:00 803 [facility] i [facility] 2021-12-27 2021-12-27 [facility] [place] 00:00:00 00:00:00 Karen [facility] MSN, STAMPS OR COINS SALESPERSON, Hospital - ty BUILDING CONSTRUCTION INSPECTOR-C: [address] [place] [facility]. [facility], [facility] s [address], [facility] [address], [place], [place] MSN, BUILDING CONSTRUCTION INSPECTOR-C [id number] , Ph. 2021-12-27 2021-12-27 [facility] [id number] 00:00:00 00:00:00 [facility] [id number] 2021-12-07 2021-12-07 Outpatient [facility] [id number] [place] 12:08:00 12:08:00 714 Commun i ty Hosp[facility] 2021-12-07 2021-12-07 [facility] [place] 14 [place] 00:00:00 00:00:00 Karen [facility] MSN, STAMPS OR COINS SALESPERSON, Hospital - ty BUILDING CONSTRUCTION INSPECTOR-C: [address] [place] [facility] . [facility], [facility] s [address], [facility] [address], [place], [place] MSN, BUILDING CONSTRUCTION INSPECTOR-C [id number] , Ph. 2021-12-07 2021-12-07 [facility] [id number] 00:00:00 00:00:00 Mindy [id number] 2021-11-03 2021-11-03 Outpatient [facility] [id number] [place] 04:09:00 04:09:00 610 [facility] Clin[facility] 2021-11-03 2021-11-03 Mindy [facility] [place] 00:00:00 00:00:00 Karen [facility] MSN, STAMPS OR COINS SALESPERSON, Hospital - ty BUILDING CONSTRUCTION INSPECTOR-C: [address] [place] [facility], Clinic s [address], [address], [place], [place] MSN, BUILDING CONSTRUCTION INSPECTOR-C [id number] , Ph. 2021-11-03 2021-11-03 Outpatient Karen [facility] [id number] 00:00:00 00:00:00 Mindy [id number] 2021-09-14 2021-09-14 Outpatient FERMAYLINON_NONA [facility] 831 [facility] 11:03:00 11:03:00 HN 0421 da [facility] 2021-03-01 2021-03-01 Outpatient [facility]C [facility] [id number] [place] 04:09:00 04:09:00 131 [facility] 2021-03-01 2021-03-01 Outpatient [facility]C [facility] [id number] [place] 04:09:00 04:09:00 328 [facility] 2021-03-01 2021-03-01 Outpatient [facility]C [facility] [id number] [place] 04:09:00 04:09:00 608 [facility] 2021-02-28 2021-02-28 Outpatient [facility]C [facility] [id number] [place] 12:01:00 12:01:00 005 [facility] 2021-02-28 2021-02-28 Outpatient Karen [facility] [id number] 00:00:00 00:00:00 Mindy [id number] 2021-02-28 2021-02-28 [facility] [place] 05 [place] 00:00:00 00:00:00 Karen [facility] MSN, STAMPS OR COINS SALESPERSON, Hospital - ty BUILDING CONSTRUCTION INSPECTOR-C: [address] [place] [facility], Clinic s [address], [facility] [address], [place] MSN, BUILDING CONSTRUCTION INSPECTOR-C [id number] , Ph. 2021-02-21 2021-02-21 Outpatient [facility]C [facility] [id number] [place] 12:29:00 12:29:00 928 [facility] i ty [facility]osp[facility] Clinics 2021-02-21 2021-02-21 Outpatient [facility]SON_C [facility] [id number] [place] 12:29:00 12:29:00 001 [facility] Clin[facility] 2021-02-21 2021-02-21 Outpatient Karen [facility] [id number] 00:00:00 00:00:00 Mindy [id number] 2021-02-21 2021-02-21 [facility] [place] 00:00:00 00:00:00 Karen [facility] uni MSN, STAMPS OR COINS SALESPERSON, Hospital - ty BUILDING CONSTRUCTION INSPECTOR-C: [address] [place] [facility], Clinic s [address], [address], [place] MSN, BUILDING CONSTRUCTION INSPECTOR-C [id number] , Ph. 2020-12-28 2020-12-28 Outpatient [facility]SON_C [facility] [id number] [place] 11:27:00 11:27:00 804 [facility] 2020-12-28 2020-12-28 [facility] [id number] 00:00:00 00:00:00 Mindy [id number] 2020-12-28 2020-12-28 [facility] [place] 04 [place] 00:00:00 00:00:00 Karen, [facility] MSN, STAMPS OR COINS SALESPERSON, Hospital - ty BUILDING CONSTRUCTION INSPECTOR-C: [address] [place] [facility], Clinic s [address], [facility] [address], [place], [place] MSN, [facility] [id number] , Ph. 2020-11-30 2020-11-30 Outpatient [facility]C [facility] [id number] [place] 09:32:00 09:32:00 707 [facility] i [facility] H[facility] 2020-11-10 2020-11-10 Outpatient [facility]SON_C [facility] [id number] [place] 12:24:00 12:24:00 617 [facility] i [facility] 2020-10-07 2020-10-07 Outpatient [facility]C [facility] [id number] [place] 10:56:00 10:56:00 514 [facility] 2020-10-07 2020-10-07 [facility] [place] 14 [place] 00:00:00 00:00:00 Karen, [facility] MSN, STAMPS OR COINS SALESPERSON, Hospital - ty BUILDING CONSTRUCTION INSPECTOR-C: [address] [place] [facility] [address], Clinic s [address], [facility] [address], [place], [place] MSN, BUILDING CONSTRUCTION INSPECTOR-C [id number] , Ph. 2020-10-07 2020-10-07 [facility] [id number] 00:00:00 00:00:00 Mindy [id number] 2020-10-07 2020-10-07 [facility] [id number] 00:00:00 00:00:00 Mindy [id number] 2020-08-16 2020-08-16 Outpatient KAREN_C [facility] [id number] [place] 11:52:00 11:52:00 323 [facility] 2020-08-16 2020-08-16 Outpatient Karen [facility] [id number] 00:00:00 00:00:00 Mindy [id number] 2020-08-16 2020-08-16 Outpatient Karen [facility] [id number] 00:00:00 00:00:00 Mindy [id number] 2020-08-16 2020-08-16 [facility] [place] 00:00:00 00:00:00 Aleksandar Jones [facility] MSN, STAMPS OR COINS SALESPERSON, Hospital - ty BUILDING CONSTRUCTION INSPECTOR-C: [address] [place] [address] [facility], Clinic s [address], [facility] [address], [place], [place] MSN, BUILDING CONSTRUCTION INSPECTOR-C [id number] , Ph. 2020-05-18 2020-05-18 Outpatient KAREN_C [facility] [id number] [place] 12:30:00 12:30:00 223 [facility] 2020-05-17 2020-05-17 Outpatient SISSON_C [facility] [id number] [place] 11:43:00 11:43:00 222 [facility] 2020-05-12 2020-05-12 Outpatient SISSON_C [facility] [id number] [place] 02:47:00 02:47:00 217 [facility] 2019-01-26 2019-01-26 Emergency E [id number] [facility] 11:44:00 11:44:00 2016-11-22 2016-11-22 Outpatient JACOBO CLAY [facility] [id number] [place] 05:51:00 05:51:00 JAMES -[id number] [facility] 2008-09-06 2008-09-06 Emergency ER AP, [facility] [id number] [place] 14:12:00 16:27:00 ROXANNE -[id number] [facility] Results Test Description Test Time Test Comments Results Result Comments Source Glucose [Mass/volume] in Capillary blood 2022-05-09 09:18:00 Test Item Value Reference Range Interpretation Comme nts Blood Glucose: mg/dl (test code = Blood Glucose: mg/dl) 165 [facility]
--- NOTE | 2022-10-17 16:34 | ER ---
Nurse's Notes [facility] Name: Nehemias Jim Age: 61 yrs Sex: Female : 1960 Arrival Date: 10/17/2022 Time: 15:56 Bed 14 Private MD: Diagnosis: Candidiasis of vulva and vagina Presentation: 10/17 15:55 Chief complaint: EMS states: [facility] where patient was at the vg1 diabetic class and they took pt BP and systolic was 94. Pt denies any CP or h/a. BGL of 177. 15:55 Method Of Arrival: EMS: [facility] vg1 15:55 Coronavirus screen: Vaccine status: Patient reports receiving the 2nd dose of the covid vg1 vaccine. Ebola Screen: Patient negative for fever greater than or equal to 101.5 degrees Fahrenheit, and additional compatible Ebola Virus Disease symptoms Patient denies exposure to infectious person. Patient denies travel to an Ebola-affected area in the 21 days before illness onset. Initial Sepsis Screen: Does the patient meet any 2 criteria? No. Patient's initial sepsis screen is negative. Does the patient have a suspected source of infection? No. Patient's initial sepsis screen is negative. Risk Assessment: Do you want to hurt yourself or someone else? Patient reports no desire to harm self or others. Onset of symptoms was October 17, 2022. 15:55 Acuity: BAILEY 3 vg1 Triage Assessment: 16:05 General: Appears in no apparent distress. comfortable, Behavior is calm, cooperative. vg1 Pain: Denies pain. Neuro: Level of Consciousness is awake, alert, obeys commands, Oriented to person, place, time, situation. Cardiovascular: Patient's skin is warm and dry. Respiratory: Airway is patent Respiratory effort is even, unlabored. Derm: Skin is pink, warm \T\ dry. Historical: - Allergies: 16:05 ACETAMINOPHEN; vg1 - Home Meds: 16:05 insulin [Active]; atorvastatin oral [Active]; vg1 - PMHx: 16:05 diabetes mellitus; Hypertensive disorder; Hypercholesterolemia; vg1 - PSHx: 16:05 back sx; tubal ligation; vg1 - Immunization history:: Client reports receiving the 2nd dose of the Covid vaccine. - Social history:: Smoking status: Patient denies any tobacco usage or history of. Patient uses street drugs, marijuana. Screenin:08 [facility] ED Fall Risk Assessment (Adult) History of falling in the last 3 months, vg1 including since admission No falls in past 3 months (0 pts). Abuse screen: Denies threats or abuse. Denies injuries from another. Nutritional screening: No deficits noted. Tuberculosis screening: No symptoms or risk factors identified. Assessment: 17:26 Reassessment: Patient appears in no apparent distress at this time. Patient and/or nj1 family updated on plan of care and expected duration. Pain level reassessed. Patient is alert, oriented x 3, equal unlabored respirations, skin warm/dry/pink. Vital Signs: 15:55 BP 126 / 65; Pulse 64; Resp 16; Temp 98.8(O); Pulse Ox 97% on R/A; Weight 65.77 kg; vg1 Height 5 ft. 3 in. ; Pain 0/10; 17:27 BP 120 / 65; Pulse 61; Resp 18; Pulse Ox 100% on R/A; nj1 15:55 Body Mass Index 25.69 (65.77 kg, 160.02 cm) vg1 15:55 Pain Scale: Adult 1 ED Course: 15:58 Patient arrived in ED. bd 16:05 Triage completed. vg1 16:05 Arm band placed on. vg1 16:07 Bob Dickson MD is Attending Physician. bs3 16:08 Patient has correct armband on for positive identification. Bed in low position. Call vg1 light in reach. Side rails up X 1. 16:08 No provider procedures requiring assistance completed. vg1 17:28 Patient did not have IV access during this emergency room visit. nj1 Administered Medications: No medications were administered Medication: 17:28 VIS not applicable for this client. nj1 Outcome: 16:34 Discharge ordered by . bs3 17:28 Discharged to home ambulatory. nj1 17:28 Condition: stable 17:28 Discharge instructions given to patient, Instructed on discharge instructions, follow up and referral plans. medication usage, Demonstrated understanding of instructions, follow-up care, medications, Prescriptions given X 1. 17:28 Patient left the ED. nj1 Signatures: Lisa Wyatt Victoria RN RN vg1 Bob Dickson MD MD bs3 Sriram, Josefa, RN RN nj1
--- NOTE | 2022-10-17 16:34 | EDPHYS ---
Physician Documentation [facility] Name: Nehemias Jim Age: 61 yrs Sex: Female : 1960 Arrival Date: 10/17/2022 Time: 15:56 Bed 14 Private MD: ED Physician Bob Dickson HPI: 10/17 16:17 This 61 yrs old Black Female presents to ER via EMS with complaints of Low BP. bs3 16:17 61-year-old female history of diabetes hyperlipidemia patient states she has no history bs3 of hypertension presents with hypotension patient was at a diabetes training class when they checked her vital signs and noted her to be hypotensive and therefore advised her to go to the emergency department EMS was called and she therefore came in she denies any chest pain shortness of breath nausea vomiting lightheadedness dizziness unsteady gait or anything else bothering her however when I was leaving the room she endorsed that she has a yeast infection and would like something for it she notes that her glucose has been intermittently controlled but she ran out of her medicines and therefore has some difficulties at times with her glucose. Historical: - Allergies: 16:05 ACETAMINOPHEN; vg1 - Home Meds: 16:05 insulin [Active]; atorvastatin oral [Active]; vg1 - PMHx: 16:05 diabetes mellitus; Hypertensive disorder; Hypercholesterolemia; vg1 - PSHx: 16:05 back sx; tubal ligation; vg1 - Immunization history:: Client reports receiving the 2nd dose of the Covid vaccine. - Social history:: Smoking status: Patient denies any tobacco usage or history of. Patient uses street drugs, marijuana. ROS: 16:17 Constitutional: Negative for fever, chills bs3 16:17 All other systems are negative. Exam: 16:17 Constitutional: This is a well developed, well nourished patient who is awake, alert, bs3 and in no acute distress. Head/Face: Normocephalic, atraumatic. Eyes: Pupils equal round and reactive to light, extra-ocular motions intact. Lids and lashes normal. ENT: mmm, no posterior phyarngeal erythema Neck: Trachea midline, no thyromegaly, no neck stiffness Chest/axilla: Normal chest wall appearance and motion. Nontender with no deformity. No lesions are appreciated. Cardiovascular: Regular rate and rhythm with a normal S1 and S2. symmetric pulses in upper extremities Respiratory: Lungs have equal breath sounds bilaterally, clear to auscultation, no respiratory distress Abdomen/GI: Soft, non-tender, no rebound or guarding Skin: Warm, dry with normal turgor. Normal color with no rashes, no lesions, and no evidence of cellulitis. MS/ Extremity: Pulses equal, no cyanosis. Neurovascular intact. Full, normal range of motion. Patient has a normal steady gait she is ambulating here without difficulty she has no dizziness with ambulation Neuro: Awake and alert, GCS 15, oriented to person, place, time, and situation. Cranial nerves II-XII grossly intact. Motor strength 5/5 in all extremities. Sensory grossly intact. Psych: Awake, alert, with orientation to person, place and time. Behavior, mood, and affect are within normal limits. Vital Signs: 15:55 BP 126 / 65; Pulse 64; Resp 16; Temp 98.8(O); Pulse Ox 97% on R/A; Weight 65.77 kg; vg1 Height 5 ft. 3 in. ; Pain 0/10; 17:27 BP 120 / 65; Pulse 61; Resp 18; Pulse Ox 100% on R/A; nj1 15:55 Body Mass Index 25.69 (65.77 kg, 160.02 cm) vg1 15:55 Pain Scale: Adult vg1 MDM: 16:00 Patient medically screened. bs3 16:33 Data reviewed: vital signs, nurses notes. ED course: Patient asymptomatic here with bs3 regard to blood pressure was likely a false reading given that she was asymptomatic and her blood pressure is normal here advised outpatient follow-up will treat for possible yeast infection. Administered Medications: No medications were administered Disposition Summary: 10/17/22 16:34 Discharge Ordered Location: Home bs3 Problem: new bs3 Symptoms: have improved bs3 Condition: Stable bs3 Diagnosis - Candidiasis of vulva and vagina bs3 Followup: bs3 - With: Private Physician - When: 1 week - Reason: Re-evaluation by your physician Discharge Instructions: - Discharge Summary Sheet bs3 - Vaginal Yeast Infection, Adult bs3 Forms: - Medication Reconciliation Form bs3 - Thank You Letter bs3 Prescriptions: - Fluconazole 150 mg Oral Tablet - take 1 tablet by ORAL route every 3 days; 2 tablet; Refills: 0, Product bs3 Selection Permitted Signatures: Josseline Wilson, RN RN vg1 Bob Dickson MD MD bs3
[2022-10-17 17:32] VITALS: BP 120/65; O2SAT 100
== END 2022-10-17 17:28 | disposition home or self-care (01) ==
LOC: ER 15:56
DX: B37.31 Acute candidiasis of vulva and vagina (principal); I10 Essential (primary) hypertension; E11.9 Type 2 diabetes mellitus without complications; Z79.4 Long term (current) use of insulin; Z88.6 Allergy status to analgesic agent